=== PATIENT | female | born 1970 | race Caucasian/White ===

== ENCOUNTER 2017-04-18 13:28 | Inpatient (IN) | payer OTHER ==
[2017-04-18] MEDS ORDERED: SODIUM CHLORIDE 0.9% 1,000 ML IV STA (13:58)
[2017-04-18] MEDS ORDERED: methylPREDNISolone SOD SUCCI 125 MG/2 ML VIAL IV STA (13:58)
[2017-04-18] MEDS ORDERED: ALBUTEROL NEBULIZED 2.5 MG/3 ML INHALATION STA (13:58)
[2017-04-18] MEDS ORDERED: LEVOFLOXACIN 750MG-D5W PMX 750 MG in DEXTROSE/WATER 1 150ML.BAG IVPB STA (13:58)
[2017-04-18] MEDS ORDERED: IPRATROPIUM 0.5 MG/2.5 ML NEBU INHALATION STA (13:58)
[2017-04-18] MEDS ORDERED: SODIUM CHLORIDE 0.9% 500 ML IV STA (13:58)
[2017-04-18 14:04] LABS: Basophils # (A) 0.1 k/uL (0-0.2); Basophils % (A) 1 %; CH 33.9; CHCM 33.5; Eosinophils # (A) 0.2 k/uL (0-0.7); Eosinophils % (A) 2 %; HCT 46.4 % (34.0-46.0); HDW 2.38; HGB 15.1 gm/dL (11.4-16.0); Luc # (Auto) 0.18; Luc % (Auto) 2; Lymphocytes # (A) 1.9 k/uL (1.0-4.8); Lymphocytes % (A) 18 %; MCH 33.1 pg (25.0-35.0); MCHC 32.6 g/dL (31.0-37.0); MCV 101.6 fL (80.0-100.0); Macrocytosis Slight; Mean Platelet Volume 10.3; Monocytes # (A) 0.8 k/uL (0-1.0); Monocytes % (A) 7 %; Neutrophils # (A) 7.3 k/uL (1.3-7.7); Neutrophils % (A) 70 %; RBC 4.57 m/uL (3.80-5.40); RDW 14.8 % (11.5-15.5); WBC 10.4 k/uL (3.8-10.6); WBC (Perox) 10.26
[2017-04-18 14:17] LABS: Partial Thromboplastin Time 23.4 sec (22.0-30.0); Prothrombin Time 10.2 sec (9.0-12.0)
--- NOTE | 2017-04-18 14:27 | ED ---
SOB HPI - General Chief Complaint: Shortness of Breath Stated Complaint: MANI Time Seen by Provider: 04/18/17 13:53 Source: family, EMS Mode of arrival: EMS Limitations: no limitations - History of Present Illness Initial Comments: 46 years old female transferred from the local urgent care X for your shortness of breath, didn't notice her to go 2 saturation was 88 after the neb treatments. She presents with a shortness of breath no chest pain as such she does have chest pain when she takes a deep breath. She does have a history of smoking for 20 years denies any history of asthma no history of coronary artery disease. Denies any alcohol use family history is unremarkable as well as coronary artery disease is concerned she denies any headaches, depression AbdominalpainnofrequencyurgencydysurianosinussymptomsofTIAorCVA, and platelet about pain under the left breast, she calls it a pain from her stomach - Related Data Home Medications Medication Instructions Recorded Confirmed Ascorbic Acid [Vitamin C] 500 mg PO DAILY 04/18/17 04/18/17 Cyanocobalamin (Vitamin B-12) 1,000 mcg PO DAILY 04/18/17 04/18/17 [Vitamin B-12] Melatonin 3 mg PO HS 04/18/17 04/18/17 Allergies Allergy/AdvReac Type Severity Reaction Status Date / Time No Known Allergies Allergy Verified 04/18/17 14:10 Review of Systems ROS Statement: Those systems with pertinent positive or pertinent negative responses have been documented in the HPI. ROS Other: All systems not noted in ROS Statement are negative. Past Medical History Past Medical History: No Reported History History of Any Multi-Drug Resistant Organisms: None Reported Past Surgical History: Section Additional Past Surgical History / Comment(s): let arm cyst removal Past Psychological History: Anxiety Smoking Status: Current every day smoker Past Alcohol Use History: None Reported Past Drug Use History: None Reported General Exam - General Exam Comments Initial Comments: General: The patient is awake and alert, in no distress, and does not appear acutely ill. GCS is 15 Skin: Skin is warm and dry and no rashes or lesions are noted. Eye: Pupils are equal, round and reactive to light, extra-ocular movements are intact; there is normal conjunctiva bilaterally. Ears, nose, mouth and throat: There are moist mucous membranes and no oral lesions. Neck: The neck is supple, there is no tenderness no signs of meningitis Cardiovascular: There is a regular rate and rhythm. No murmur, rub or gallop is appreciated. Respiratory: To auscultation bilateral, poor air exchange, she is even barely wheezing Gastrointestinal: Soft, non-distended, non-tender abdomen without masses or organomegaly noted. There is no rebound or guarding present. Bowel sounds are unremarkable. Back: There is no tenderness to palpation in the midline. There is no obvious deformity. Musculoskeletal: Normal ROM, no tenderness, There is no pedal edema. There is no calf tenderness or swelling. No cords were appreciated. Neurological: CN II-XII intact, Cranial nerves III through XII are intact. There are no obvious motor or sensory deficits. Coordination appears grossly intact. Speech is normal. Psychiatric: Cooperative, appropriate mood & affect, normal judgment. Limitations: no limitations Course Vital Signs 04/18/17 04/18/17 04/18/17 13:30 13:53 14:15 Temperature 101.3 F H 101.4 F H Pulse Rate 114 H 106 H 114 H Respiratory 32 H 32 H Rate Blood Pressure 138/79 118/81 O2 Sat by Pulse 89 L 92 L Oximetry 04/18/17 04/18/17 04/18/17 14:23 14:33 14:46 Temperature 101.3 F H Pulse Rate 114 H 105 H 115 H Respiratory 28 H Rate Blood Pressure 149/80 O2 Sat by Pulse 97 Oximetry 04/18/17 04/18/17 14:51 15:55 Temperature 98.6 F Pulse Rate 130 H 116 H Respiratory 28 H 24 Rate Blood Pressure 134/70 132/67 O2 Sat by Pulse 92 L 93 L Oximetry Medical Decision Making - Lab Data Result diagrams: 04/18/17 13:51 04/18/17 13:51 Lab Results 04/18/17 04/18/17 04/18/17 Range/Units 13:51 13:51 13:51 WBC 10.4 (3.8-10.6) k/uL RBC 4.57 (3.80-5.40) m/uL Hgb 15.1 (11.4-16.0) gm/dL Hct 46.4 H (34.0-46.0) % MCV 101.6 H (80.0-100.0) fL MCH 33.1 (25.0-35.0) pg MCHC 32.6 (31.0-37.0) g/dL RDW 14.8 (11.5-15.5) % Plt Count 120 L (150-450) k/uL Neutrophils % 70 % Lymphocytes % 18 % Monocytes % 7 % Eosinophils % 2 % Basophils % 1 % Neutrophils # 7.3 (1.3-7.7) k/uL Lymphocytes # 1.9 (1.0-4.8) k/uL Monocytes # 0.8 (0-1.0) k/uL Eosinophils # 0.2 (0-0.7) k/uL Basophils # 0.1 (0-0.2) k/uL Macrocytosis Slight PT (9.0-12.0) sec INR (<1.2) APTT (22.0-30.0) sec D-Dimer (<0.60) mg/L FEU Sodium 141 (137-145) mmol/L Potassium 4.2 (3.5-5.1) mmol/L Chloride 109 H (98-107) mmol/L Carbon Dioxide 24 (22-30) mmol/L Anion Gap 8 mmol/L BUN 12 (7-17) mg/dL Creatinine 0.63 (0.52-1.04) mg/dL Est GFR (MDRD) Af Amer >60 (>60 ml/min/1.73 sqM) Est GFR (MDRD) Non-Af >60 (>60 ml/min/1.73 sqM) Glucose 99 (74-99) mg/dL Plasma Lactic Acid Heraclio 1.2 (0.7-2.0) mmol/L Calcium 8.6 (8.4-10.2) mg/dL Total Bilirubin 0.4 (0.2-1.3) mg/dL AST 26 (14-36) U/L ALT 27 (9-52) U/L Alkaline Phosphatase 65 (38-126) U/L Troponin I (0.000-0.034) ng/mL Total Protein 6.4 (6.3-8.2) g/dL Albumin 3.5 (3.5-5.0) g/dL Urine Color Urine Appearance (Clear) Urine pH (5.0-8.0) Ur Specific [place] (1.001-1.035) Urine Protein (Negative) Urine Glucose (UA) (Negative) Urine Ketones (Negative) Urine Blood (Negative) Urine Nitrite (Negative) Urine Bilirubin (Negative) Urine Urobilinogen (<2.0) mg/dL Ur Leukocyte Esterase (Negative) Urine RBC (0-5) /hpf Urine WBC (0-5) /hpf Ur Squamous Epith Cells (0-4) /hpf Urine Bacteria (None) /hpf Urine Mucus (None) /hpf 04/18/17 04/18/17 04/18/17 Range/Units 13:51 13:51 14:15 WBC (3.8-10.6) k/uL RBC (3.80-5.40) m/uL Hgb (11.4-16.0) gm/dL Hct (34.0-46.0) % MCV (80.0-100.0) fL MCH (25.0-35.0) pg MCHC (31.0-37.0) g/dL RDW (11.5-15.5) % Plt Count (150-450) k/uL Neutrophils % % Lymphocytes % % Monocytes % % Eosinophils % % Basophils % % Neutrophils # (1.3-7.7) k/uL Lymphocytes # (1.0-4.8) k/uL Monocytes # (0-1.0) k/uL Eosinophils # (0-0.7) k/uL Basophils # (0-0.2) k/uL Macrocytosis PT 10.2 (9.0-12.0) sec INR 1.0 (<1.2) APTT 23.4 (22.0-30.0) sec D-Dimer 0.36 (<0.60) mg/L FEU Sodium (137-145) mmol/L Potassium (3.5-5.1) mmol/L Chloride (98-107) mmol/L Carbon Dioxide (22-30) mmol/L Anion Gap mmol/L BUN (7-17) mg/dL Creatinine (0.52-1.04) mg/dL Est GFR (MDRD) Af Amer (>60 ml/min/1.73 sqM) Est GFR (MDRD) Non-Af (>60 ml/min/1.73 sqM) Glucose (74-99) mg/dL Plasma Lactic Acid Heraclio (0.7-2.0) mmol/L Calcium (8.4-10.2) mg/dL Total Bilirubin (0.2-1.3) mg/dL AST (14-36) U/L ALT (9-52) U/L Alkaline Phosphatase (38-126) U/L Troponin I <0.012 (0.000-0.034) ng/mL Total Protein (6.3-8.2) g/dL Albumin (3.5-5.0) g/dL Urine Color Yellow Urine Appearance Clear (Clear) Urine pH 6.5 (5.0-8.0) Ur Specific [place] 1.023 (1.001-1.035) Urine Protein Trace H (Negative) Urine Glucose (UA) Negative (Negative) Urine Ketones Negative (Negative) Urine Blood Moderate H (Negative) Urine Nitrite Negative (Negative) Urine Bilirubin Negative (Negative) Urine Urobilinogen <2.0 (<2.0) mg/dL Ur Leukocyte Esterase Negative (Negative) Urine RBC 25 H (0-5) /hpf Urine WBC 1 (0-5) /hpf Ur Squamous Epith Cells 5 H (0-4) /hpf Urine Bacteria Rare H (None) /hpf Urine Mucus Rare H (None) /hpf Disposition Clinical Impression: Dyspnea, Hypoxia, Pleuritic chest pain, COPD exacerbation Disposition: ADMITTED IP TO THIS [facility] Condition: Good Referrals: Bernardo Cloud DO [Primary Care Provider] - 1-2 days
[2017-04-18 14:28] LABS: Anion Gap 8 mmol/L; Blood Urea Nitrogen 12 mg/dL (7-17); Calcium 8.6 mg/dL (8.4-10.2); Carbon Dioxide 24 mmol/L (22-30); Chloride 109 mmol/L (98-107); Glucose 99 mg/dL (74-99); Non-African American GFR(MDRD) >60 (>60 ml/min/1.73 sqM); Potassium 4.2 mmol/L (3.5-5.1); Sodium 141 mmol/L (137-145); Total Bilirubin 0.4 mg/dL (0.2-1.3); Total Protein 6.4 g/dL (6.3-8.2)
[2017-04-18 14:29] LABS: ALT 27 U/L (9-52); AST 26 U/L (14-36); Alkaline Phosphatase 65 U/L (38-126)
[2017-04-18 14:35] LABS: Appearance,Urine Clear (Clear); Bacteria,Urine Rare /hpf; Bilirubin,Urine Negative (Negative); Glucose,Urine (UA) Negative (Negative); Ketones,Urine Negative (Negative); Leukocyte Esterase,Urine Negative (Negative); Mucus,Urine Rare /hpf; Nitrite,Urine Negative (Negative); PH, Urine 6.5 (5.0-8.0); Particle Count 3566; Protein,Urine Trace (Negative); RBC,Urine 25 /hpf (0-5); Specific Gravity,Urine 1.023 (1.001-1.035); Squamous Epithelial Cell,Urine 5 /hpf (0-4); UA Billing (MACRO vs. MICRO) MICRO; Urobilinogen,Urine <2.0 mg/dL (<2.0); WBC,Urine 1 /hpf (0-5)
--- NOTE | 2017-04-18 15:07 | XR ---
EXAMINATION TYPE: XR chest 2V DATE OF EXAM: 04/18/2017 COMPARISON: NONE HISTORY: Shortness of breath for 3 days TECHNIQUE: Frontal and lateral views of the chest are obtained. FINDINGS: There is no focal air space opacity, pleural effusion, or pneumothorax seen. Peribronchia l cuffing is seen on the lateral image centrally, which may relate to reactive small airway disease o r bronchitis. The cardiac silhouette size is within normal limits. The osseous structures are intac t. Mild degenerative changes of the thoracic spine are noted. IMPRESSION: 1. Peribronchial cuffing centrally which may relate to bronchitis or reactive small airway disease. 2. No focal consolidation to suggest pneumonia.
[2017-04-18] MEDS ORDERED: NITROGLYCERIN SL TABS 0.4 MG TAB SUBLINGUAL PRN (16:22)
[2017-04-18] MEDS ORDERED: MORPHINE SULFATE 2 MG/ML SYRINGE IVP PRN (16:22)
[2017-04-18 18:03] VITALS: BMI 31.1
[2017-04-18] MEDS: SODIUM CHLORIDE 0.9% 1,000 ML IV SCH (18:06)
[2017-04-18] MEDS: methylPREDNISolone SOD SUCCI 125 MG/2 ML VIAL IV SCH ×2 (18:14→22:59)
[2017-04-18 19:57] LABS: Creatine Kinase 87 U/L (30-135)
[2017-04-18 20:11] LABS: Creatine Kinase MB 1.9 ng/mL (0.0-2.4); Troponin I <0.012 ng/mL (0.000-0.034)
[2017-04-18 21:04] LABS: Glucose,Whole Blood 228 mg/dL (75-99)
[2017-04-18] MEDS: INSULIN LISPRO (humaLOG) 300 UNIT/3 ML VIAL SQ SCH (21:16)
[2017-04-18] MEDS: IPRATROPIUM-ALBUTEROL 3 ML NEB INHALATION PRN (21:30)
[2017-04-18] MEDS: BUDESONIDE 0.5 MG/2 ML NEBU INHALATION SCH (21:30)
[2017-04-18] MEDS: MELATONIN 3 MG TABLET PO SCH (22:33)
[2017-04-19] MEDS: SODIUM CHLORIDE 0.9% 1,000 ML IV SCH ×2 (02:08→11:47)
[2017-04-19 02:22] LABS: Cholesterol 136 mg/dL (<200); HDL Cholesterol 59 mg/dL (40-60)
[2017-04-19 02:22] LABS: Creatine Kinase 108 U/L (30-135)
[2017-04-19 02:33] LABS: Troponin I <0.012 ng/mL (0.000-0.034)
[2017-04-19 02:43] LABS: Creatine Kinase MB 2.6 ng/mL (0.0-2.4)
[2017-04-19] MEDS: methylPREDNISolone SOD SUCCI 125 MG/2 ML VIAL IV SCH ×2 (04:57→11:38)
[2017-04-19 05:54] LABS: Glucose,Whole Blood 159 mg/dL (75-99)
[2017-04-19] MEDS: INSULIN LISPRO (humaLOG) 300 UNIT/3 ML VIAL SQ SCH ×4 (06:13→22:31)
[2017-04-19] MEDS: ASCORBIC ACID 500 MG TAB PO SCH (07:27)
[2017-04-19] MEDS: ASPIRIN 325 MG TAB PO SCH (07:27)
--- NOTE | 2017-04-19 07:58 | P.HPIM ---
History of Present Illness H&P Date: 04/19/17 Chief Complaint: shortness of breath and chest pain 46 years old female with past medical history of depression, patient of Dr. Minaya presents with worsening shortness of breath and nonproductive cough for past 2 days. Patient was transferred from a local urgent care for shortness of breath with SpO2 of 88% after nebulization treatments. Shortness of breath is associated with mild nonproductive cough.. Patient complains of left-sided chest pain, nonradiating, associated with meals, heartburn and worsens with taking a deep breath for past few months. Patient denies any fever , chills, exposure to a sick contact or recent travel. 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 Patient's x-ray suggestive of peribronchial coughing relating to bronchitis but no consolidation to suggest pneumonia. In the ED, troponin 2 were negative with slight elevation of CK-MB to 2.6. Panel was done suggest a LDL of 65. Patient has a glucose of 228 on admission, rest of the BMP and CBC was unremarkable. Patient was admitted for management of chest pain and acute bronchitis with metallic prednisone 60 mg every 6 hours along with nebulizing treatments. Cardiology was consulted for atypical chest pain. Echo was ordered to rule out any wall abnormalities. Review of Systems Constitutional: Denies chills, Denies fever, Denies lethargy, Denies malaise, Denies poor appetite, Denies weakness, Denies weight loss Eyes: denies decreased vision, denies diplopia, denies discharge, denies pain Ears: deny: decreased hearing Ears, nose, mouth and throat: Denies dental pain, Denies headache, Denies nasal discharge, Denies nose pain Cardiovascular: Denies chest pain, Denies decreased exercise tolerance, Denies edema, Denies high blood pressure, Denies irregular heart beat, Denies palpitations, Denies paroxysmal nocturnal dyspnea, Denies rapid heart beat, endorses shortness of breath Respiratory: Denies congestion, endorses cough, Denies cough with sputum, Denies dyspnea, Denies home oxygen, endorses wheezing Gastrointestinal: Denies abdominal pain, Denies change in bowel habits, Denies coffee ground emesis, Denies early satiety, Denies excessive gas, Denies heartburn, Denies hematemesis, Denies hematochezia, Denies loss of appetite, Denies nausea, Denies vomiting Genitourinary: Denies dysuria, Denies flank pain, Denies kidney stones, Denies menorrhagia, Denies urgency, Denies urinary frequency Musculoskeletal: Denies gait dysfunction, Denies limitation of motion, Denies morning stiffness, Denies muscle cramps Integumentary: Denies rash, Denies wounds, Denies brittle nails, Denies change in hair/nails, Denies darkening of skin Neurological: Denies balance difficulties, Denies change in speech, Denies double vision, Denies gait dysfunction, Denies loss of vision, Denies motor disturbance, Denies numbness, Denies paralysis, Denies paresthesias, Denies seizures Psychiatric: Denies anxiety, Denies depression Endocrine: Denies excessive sweating, Denies excessive thirst, Denies high blood sugars, Denies palpitations Hematologic/Lymphatic: Denies easy bruising, Denies lymphadenopathy Past Medical History Past Medical History: No Reported History Additional Past Medical History / Comment(s): depression History of Any Multi-Drug Resistant Organisms: None Reported Past Surgical History: Section Additional Past Surgical History / Comment(s): let arm cyst removal Past Psychological History: Anxiety Smoking Status: Current every day smoker Past Alcohol Use History: None Reported Past Drug Use History: None Reported Medications and Allergies Home Medications Medication Instructions Recorded Confirmed Type Ascorbic Acid [Vitamin C] 500 mg PO DAILY 04/18/17 04/18/17 History Cyanocobalamin (Vitamin B-12) 1,000 mcg PO DAILY 04/18/17 04/18/17 History [Vitamin B-12] Melatonin 3 mg PO HS 04/18/17 04/18/17 History DULoxetine HCL [Cymbalta] 60 mg PO DAILY 04/19/17 04/19/17 History Allergies Allergy/AdvReac Type Severity Reaction Status Date / Time No Known Allergies Allergy Verified 04/18/17 14:10 Physical Exam Vitals: Vital Signs Temp Pulse Pulse Resp BP BP Pulse Ox 04/19/17 07:55 20 04/19/17 04:00 98 F 84 20 122/86 93 L 04/18/17 23:46 97 F L 113 H 20 118/63 94 L 04/18/17 21:43 108 H 04/18/17 21:31 104 H 04/18/17 20:00 98 F 105 H 20 129/75 92 L 04/18/17 17:55 98.2 F 106 H 22 125/70 94 L 04/18/17 17:24 98.6 F 111 H 24 134/72 94 L 04/18/17 15:55 116 H 24 132/67 93 L 04/18/17 14:51 98.6 F 130 H 28 H 134/70 92 L 04/18/17 14:46 115 H 04/18/17 14:33 105 H 04/18/17 14:23 101.3 F H 114 H 28 H 149/80 97 04/18/17 14:15 114 H 04/18/17 13:53 101.4 F H 106 H 32 H 118/81 92 L 04/18/17 13:30 101.3 F H 114 H 32 H 138/79 89 L Intake and Output 04/18/17 04/19/17 04/19/17 22:59 06:59 14:59 Intake Total 800 800 Balance 800 800 Intake: IV 800 800 Sodium Chloride 0.9% 1, 800 800 000 ml @ 100 mls/hr IV . Q10H [facility], [facility] Rx#:[id number] Other: Weight 72.5 kg 72.7 kg - Constitutional General appearance: cooperative, no acute distress, obese, wearing oxygen - EENT Eyes: anicteric sclerae, PERRLA, normal appearance ENT: hearing grossly normal - Neck Neck: no lymphadenopathy, normal ROM, no other, no rigidity, no stridor, no thyromegaly - Respiratory Respiratory: Diffuse wheezing present, no rales no rhonchi, diminished air entry at the bases - Cardiovascular Rhythm: regular Heart sounds: normal: S1, S2 Abnormal Heart Sounds: no systolic murmur, no diastolic murmur, no rub, no S3 Gallop, no S4 Gallop, no click, no other - Gastrointestinal General gastrointestinal: normal bowel sounds, soft - Integumentary Integumentary: no rash - Neurologic Neurologic: CNII-XII intact - Musculoskeletal Musculoskeletal: gait normal, strength equal bilaterally - Psychiatric Psychiatric: A&O x's 3, appropriate affect Results CBC & Chem 7: 04/18/17 13:51 04/18/17 13:51 Labs: Abnormal Lab Results - Last 24 Hours (Table) 04/18/17 04/18/17 04/18/17 Range/Units 13:51 13:51 14:15 Hct 46.4 H (34.0-46.0) % MCV 101.6 H (80.0-100.0) fL Plt Count 120 L (150-450) k/uL Chloride 109 H (98-107) mmol/L POC Glucose (mg/dL) (75-99) mg/dL CK-MB (CK-2) (0.0-2.4) ng/mL Urine Protein Trace H (Negative) Urine Blood Moderate H (Negative) Urine RBC 25 H (0-5) /hpf Ur Squamous Epith Cells 5 H (0-4) /hpf Urine Bacteria Rare H (None) /hpf Urine Mucus Rare H (None) /hpf 04/18/17 04/19/17 04/19/17 Range/Units 21:00 01:43 05:53 Hct (34.0-46.0) % MCV (80.0-100.0) fL Plt Count (150-450) k/uL Chloride (98-107) mmol/L POC Glucose (mg/dL) 228 H 159 H (75-99) mg/dL CK-MB (CK-2) 2.6 H* (0.0-2.4) ng/mL Urine Protein (Negative) Urine Blood (Negative) Urine RBC (0-5) /hpf Ur Squamous Epith Cells (0-4) /hpf Urine Bacteria (None) /hpf Urine Mucus (None) /hpf Microbiology - Last 24 Hours (Table) 04/18/17 14:15 Urine Culture - Preliminary Urine,Voided Thrombosis Risk Factor Assmnt - DVT/VTE Prophylaxis DVT/VTE Prophylaxis: Pharmacologic Prophylaxis ordered Assessment and Plan Plan: 46 years old female with history of depression presently admitted for acute tracheobronchitis #1 acute bronchitis with hypoxic respiratory failure - Continue oxygen as needed to keep SpO2 greater than 90%, continue Solu-Medrol 60 Q8, we will transition to prednisone tomorrow - Patient's breathing has improved since yesterday, patient advised to stop smoking and to avoid passive smoking - Continue DuoNeb every 4 hours with Pulmicort twice a day - Discontinue fluids, incentive spirometry 10 times an hour - Continue Levaquin 500 mg daily #2 depression - Continue home dose of Cymbalta #3 tobacco abuse - Patient counselled on stopping smoking, patient understands the risk associated with smoking and is ready to quit. - Nicotine patch 14 mg daily #4 DVT prophylaxis - Hep heparin 5000 subcutaneously every 12 #5 GI prophylaxis- Pepcid 20 mg by mouth daily #6 CODE STATUS- full code #7 disposition- likely discharge home tomorrow
[2017-04-19] MEDS: BUDESONIDE 0.5 MG/2 ML NEBU INHALATION SCH ×2 (08:04→21:07)
[2017-04-19] MEDS: IPRATROPIUM-ALBUTEROL 3 ML NEB INHALATION PRN ×3 (08:04→21:07)
--- NOTE | 2017-04-19 11:35 | ECHOF ---
Referral Reason:chest pain and SOB MEASUREMENTS -------- HEIGHT: 152.4 cm WEIGHT: 72.6 kg BP: 126/75 IVSd: 1.3 cm (0.6 - 1.1) LVIDd: 3.8 cm (3.9 - 5.3) LVPWd: 0.9 cm (0.6 - 1.1) IVSs: 1.4 cm LVIDs: 3.0 cm LVPWs: 0.8 cm LA Diam: 2.7 cm (2.7 - 3.8) Ao Diam: 2.6 cm (2.0 - 3.7) AV Cusp: 1.6 cm (1.5 - 2.6) LA Diam: 3.1 cm (2.7 - 3.8) MV EXCURSION: 13.536 mm (> 18.000) MV EF SLOPE: 83 mm/s (70 - 150) EPSS: 0.2 cm MV E Mikel: 0.68 m/s MV DecT: 195 ms MV A Mikel: 1.08 m/s MV E/A Ratio: 0.63 FINDINGS -------- Sinus rhythm. This was a techncally difficult study with suboptimal views, , Definity utilized for enhancement of images. The left ventricular size is normal. There is mild concentric left ventricular hypertrophy. Overall left ventricular systolic function is normal with, an EF between 55 - 60 %. The right ventricle is normal in size. The left atrial size is normal. The right atrial size is normal. 1.5MG OF DEFINITY UTLIZED: 2 OR MORE WALL SEGMENTS NOT VISUALIZED. The aortic valve is trileaflet, and appears structurally normal. No aortic stenosis or regurgitation. Mild mitral annular calcification present. Mild mitral regurgitation is present. Mild tricuspid regurgitation present. There is no evidence of pulmonary hypertension. The right ventricular systolic pressure, as measured by Doppler, is {RVSP}. There is no pulmonic regurgitation present. The aortic root size is normal. There is no pericardial effusion. CONCLUSIONS -------- 1. This was a techncally difficult study with suboptimal views, , Definity utilized for enhancement of images. 2. There is no evidence of pulmonary hypertension. 3. The right ventricular systolic pressure, as measured by Doppler, is {RVSP}. 4. There is no pulmonic regurgitation present. 5. The aortic root size is normal. 6. There is no pericardial effusion. 7. The left ventricular size is normal. 8. There is mild concentric left ventricular hypertrophy. 9. Overall left ventricular systolic function is normal with, an EF between 55 - 60 %. 10. 1.5MG OF DEFINITY UTLIZED: 2 OR MORE WALL SEGMENTS NOT VISUALIZED. 11. The aortic valve is trileaflet, and appears structurally normal. No aortic stenosis or regurgitation. 12. Mild mitral annular calcification present. 13. Mild mitral regurgitation is present. 14. Mild tricuspid regurgitation present. [employer] O[employer]ATOR: Janneth Abraham RDCS
[2017-04-19] MEDS: CYANOCOBALAMIN 500 MCG TAB PO SCH (11:38)
[2017-04-19] MEDS: LEVOFLOXACIN 500 MG TAB PO SCH (11:38)
[2017-04-19 11:39] LABS: Glucose,Whole Blood 185 mg/dL (75-99)
--- NOTE | 2017-04-19 12:44 | CONS ---
CONSULTATION Mrs. Valle is a 46-year-old female with no prior documented history of coronary artery disease, history of chronic tobacco use presented with symptoms of progressive dyspnea and cough. She has been having the dyspnea and cough for a few weeks, worse upon admission. She cannot recall the color of her sputum. She denies any chest discomfort. She denies any prior history of cardiac disease. She has some palpitation and dizziness. No clear PND, orthopnea or peripheral edema. She is a chronic tobacco user, and she has a baseline dyspnea on exertion. Her coronary risk factors are positive for chronic tobacco use. No history of hypertension, hyperlipidemia, or diabetes. MEDICATIONS: Her medications include melatonin, vitamin B12, and vitamin C. REVIEW OF SYSTEMS: RESPIRATORY SYSTEM: She has the cough, the dyspnea on exertion, the chronic wheezing. GI SYSTEM: No recent GI bleed. She has a remote history of peptic ulcer disease. SYSTEM: No dysuria or hematuria. NERVOUS SYSTEM: No history of stroke or seizure. PHYSICAL EXAMINATION: A 46-year-old female, alert, oriented, mild dyspnea. Blood pressure 126/70 with the heart rate in the low 100s to 90s. HEAD: Normocephalic. EYES: Sclerae anicteric. NECK: No bruit. LUNGS: With diffuse wheezes bilaterally in inspiratory and expiratory. HEART: Regular rate and rhythm. S1, S2. No S3. No rub or gallop. ABDOMEN: Soft, nontender. Positive bowel sounds. No organomegaly. EXTREMITIES: No edema. Intact distal pulses. LAB DATA: Lab data revealed a hemoglobin 15.1, hematocrit 46.4, white blood cell of 10.4. BUN and creatinine 12 and 0.63. less than 0.012. Her cholesterol 136, LDL of 63. Her chest x-ray shows peribronchial cuffing could be related to bronchitis. EKG revealed a sinus mechanism with a normal axis and intervals; no acute ST-segment changes. IMPRESSION: 1. Progressive dyspnea with exacerbation of chronic obstructive pulmonary disease and tracheobronchitis. 2. Chronic tobacco use. RECOMMENDATION: From the cardiac standpoint, I see no evidence to suggest cardiac abnormalities. I have encouraged her to stop smoking. We will review the results of her echocardiogram. Thank you for this consult. We will follow with you. MMODL / IJN: [id number] /
[2017-04-19] MEDS ORDERED: methylPREDNISolone SOD SUCCI 125 MG/2 ML VIAL IV SCH (16:00)
[2017-04-19 18:03] LABS: Glucose,Whole Blood 150 mg/dL (75-99)
[2017-04-19 20:49] LABS: Glucose,Whole Blood 136 mg/dL (75-99)
[2017-04-19] MEDS: MELATONIN 3 MG TABLET PO SCH (22:31)
[2017-04-19] MEDS: HEPARIN SODIUM,PORCINE 5,000 UNIT/ML 1 ML VIAL SQ SCH (22:31)
[2017-04-20 07:07] LABS: Glucose,Whole Blood 113 mg/dL (75-99)
[2017-04-20] MEDS: BUDESONIDE 0.5 MG/2 ML NEBU INHALATION SCH ×2 (07:27→19:13)
[2017-04-20] MEDS: IPRATROPIUM-ALBUTEROL 3 ML NEB INHALATION PRN ×4 (07:27→19:13)
[2017-04-20] MEDS: INSULIN LISPRO (humaLOG) 300 UNIT/3 ML VIAL SQ SCH ×4 (08:13→20:05)
[2017-04-20] MEDS: ASCORBIC ACID 500 MG TAB PO SCH (08:15)
[2017-04-20] MEDS: ASPIRIN 325 MG TAB PO SCH (08:15)
[2017-04-20] MEDS: FAMOTIDINE 20 MG TAB PO SCH (08:16)
[2017-04-20] MEDS: HEPARIN SODIUM,PORCINE 5,000 UNIT/ML 1 ML VIAL SQ SCH ×2 (08:16→20:04)
[2017-04-20] MEDS ORDERED: predniSONE 20 MG TAB PO SCH (09:00)
[2017-04-20] MEDS: guaiFENesin 600 MG TABLET.ER PO SCH ×2 (11:03→20:04)
[2017-04-20 11:38] LABS: Glucose,Whole Blood 127 mg/dL (75-99)
[2017-04-20] MEDS: LEVOFLOXACIN 500 MG TAB PO SCH (12:04)
[2017-04-20] MEDS: CYANOCOBALAMIN 500 MCG TAB PO SCH (12:04)
--- NOTE | 2017-04-20 13:47 | P.PN ---
Subjective 46 years old female with past medical history of depression, patient of Dr. Minaya presents with worsening shortness of breath and nonproductive cough for past 2 days. Patient was transferred from a local urgent care for shortness of breath with SpO2 of 88% after nebulization treatments. Shortness of breath is associated with mild nonproductive cough.. Patient complains of left-sided chest pain, nonradiating, associated with meals, heartburn and worsens with taking a deep breath for past few months. Patient denies any fever , chills, exposure to a sick contact or recent travel. 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 Patient's x-ray suggestive of peribronchial coughing relating to bronchitis but no consolidation to suggest pneumonia. In the ED, troponin 2 were negative with slight elevation of CK-MB to 2.6. Panel was done suggest a LDL of 65. Patient has a glucose of 228 on admission, rest of the BMP and CBC was unremarkable. Patient was admitted for management of chest pain and acute bronchitis with metallic prednisone 60 mg every 6 hours along with nebulizing treatments. Cardiology was consulted for atypical chest pain. Echo was ordered to rule out any wall abnormalities. 04/20: Patient continues to have a lot of cough for which Mucinex has been added. She is continued on DuoNeb treatments and Levaquin. She is also on Pulmicort. Prednisone will be decreased to 50 mg for tomorrow with anticipation of discharge home tomorrow. Objective - Vital Signs Vital signs: Vital Signs Temp 97.7 F 04/20/17 07:00 Pulse 88 04/20/17 11:18 Resp 18 04/20/17 08:00 BP 125/67 04/20/17 07:00 Pulse Ox 90 L 04/20/17 11:51 Intake & Output 04/19/17 04/20/17 04/20/17 18:59 06:59 18:59 Intake Total 720 Balance 720 Weight 72.7 kg Intake: Oral 720 Other: # Voids 2 3 - Exam General appearance: cooperative, no acute distress, obese, wearing oxygen - EENT Eyes: anicteric sclerae, PERRLA, normal appearance ENT: hearing grossly normal - Neck Neck: no lymphadenopathy, normal ROM, no other, no rigidity, no stridor, no thyromegaly - Respiratory Respiratory: Diffuse wheezing present, no rales no rhonchi, diminished air entry at the bases - Cardiovascular Rhythm: regular Heart sounds: normal: S1, S2 Abnormal Heart Sounds: no systolic murmur, no diastolic murmur, no rub, no S3 Gallop, no S4 Gallop, no click, no other - Gastrointestinal General gastrointestinal: normal bowel sounds, soft - Integumentary Integumentary: no rash - Neurologic Neurologic: CNII-XII intact - Musculoskeletal Musculoskeletal: gait normal, strength equal bilaterally - Psychiatric Psychiatric: A&O x's 3, appropriate affect - Labs CBC & Chem 7: 04/18/17 13:51 04/18/17 13:51 Labs: Abnormal Lab Results - Last 24 Hours (Table) 04/19/17 04/19/17 04/20/17 Range/Units 17:13 20:42 06:55 POC Glucose (mg/dL) 150 H 136 H 113 H (75-99) mg/dL 04/20/17 Range/Units 11:23 POC Glucose (mg/dL) 127 H (75-99) mg/dL Microbiology - Last 24 Hours (Table) 04/18/17 14:15 Urine Culture - Final Urine,Voided 04/18/17 13:51 Blood Culture - Preliminary Blood No Growth after 24 hours Assessment and Plan Plan: #1 acute bronchitis with hypoxic respiratory failure - Continue oxygen as needed to keep SpO2 greater than 90%, continue Solu-Medrol 60 Q8, we will transition to prednisone tomorrow - Patient's breathing has improved since yesterday, patient advised to stop smoking and to avoid passive smoking - Continue DuoNeb every 4 hours with Pulmicort twice a day - Discontinue fluids, incentive spirometry 10 times an hour - Continue Levaquin 500 mg daily, Mucinex #2 depression - Continue home dose of Cymbalta #3 tobacco abuse - Patient counselled on stopping smoking, patient understands the risk associated with smoking and is ready to quit. - Nicotine patch 14 mg daily #4 DVT prophylaxis - Hep heparin 5000 subcutaneously every 12 #5 GI prophylaxis- Pepcid 20 mg by mouth daily #6 CODE STATUS- full code #7 disposition- likely discharge home tomorrow Impression and plan of care have been directed as dictated by the signing physician. Oriana Kaur nurse practitioner acting as scribe for signing physician.
[2017-04-20 16:30] LABS: Glucose,Whole Blood 157 mg/dL (75-99)
[2017-04-20] MEDS: MELATONIN 3 MG TABLET PO SCH (20:04)
[2017-04-20 20:16] LABS: Glucose,Whole Blood 147 mg/dL (75-99)
[2017-04-21] MEDS: INSULIN LISPRO (humaLOG) 300 UNIT/3 ML VIAL SQ SCH (07:01)
[2017-04-21] MEDS: BUDESONIDE 0.5 MG/2 ML NEBU INHALATION SCH (07:12)
[2017-04-21] MEDS: IPRATROPIUM-ALBUTEROL 3 ML NEB INHALATION PRN (07:12)
[2017-04-21 07:35] VITALS: BP 138/82; PULSE 83; TEMP 98.3
[2017-04-21] MEDS: ASCORBIC ACID 500 MG TAB PO SCH (08:28)
[2017-04-21] MEDS: FAMOTIDINE 20 MG TAB PO SCH (08:29)
[2017-04-21] MEDS: ASPIRIN 325 MG TAB PO SCH (08:29)
[2017-04-21] MEDS: guaiFENesin 600 MG TABLET.ER PO SCH (08:29)
[2017-04-21] MEDS: HEPARIN SODIUM,PORCINE 5,000 UNIT/ML 1 ML VIAL SQ SCH (08:29)
[2017-04-21 08:54] VITALS: RESP 26
[2017-04-21] MEDS ORDERED: predniSONE 50 MG TAB PO SCH (09:00)
--- NOTE | 2017-04-21 12:10 | P.DS ---
Providers Date of admission: 04/18/17 16:22 Expected date of discharge: 04/21/17 Attending physician: Kristopher Escobar MD [facility] Course: 46 years old female with past medical history of depression, patient of Dr. Minaya presents with worsening shortness of breath and nonproductive cough for past 2 days. Patient was transferred from a local urgent care for shortness of breath with SpO2 of 88% after nebulization treatments. Shortness of breath is associated with mild nonproductive cough.. Patient complains of left-sided chest pain, nonradiating, associated with meals, heartburn and worsens with taking a deep breath for past few months. Patient denies any fever , chills, exposure to a sick contact or recent travel. 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 Patient's x-ray suggestive of peribronchial coughing relating to bronchitis but no consolidation to suggest pneumonia. In the ED, troponin 2 were negative with slight elevation of CK-MB to 2.6. Panel was done suggest a LDL of 65. Patient has a glucose of 228 on admission, rest of the BMP and CBC was unremarkable. Patient was admitted for management of chest pain and acute bronchitis with metallic prednisone 60 mg every 6 hours along with nebulizing treatments. Cardiology was consulted for atypical chest pain. Echo was ordered to rule out any wall abnormalities. 04/20: Patient continues to have a lot of cough for which Mucinex has been added. She is continued on DuoNeb treatments and Levaquin. She is also on Pulmicort. Prednisone will be decreased to 50 mg for tomorrow with anticipation of discharge home tomorrow. Discharge diagnoses: #1 acute bronchitis with hypoxic respiratory failure most likely secondary to asthma, new onset but COPD is not entirely ruled out. Patient will need follow- up with pulmonary physician to determine her underlying diagnosis. #2 depression, recurrent #3 tobacco abuse Discharge plan: Home Impression and plan of care have been directed as dictated by the signing physician. Oriana Kaur nurse practitioner acting as scribe for signing physician. Cc: Dr. Bernardo Cloud Patient Condition at Discharge: Good Plan - Discharge Summary New Discharge Prescriptions: New guaiFENesin [Mucinex] 600 mg PO Q12HR tab Levofloxacin [Levaquin] 500 mg PO DAILY@1200 #3 tab Albuterol Inhaler [Ventolin Hfa Inhaler] 2 puff INHALATION Q6HR PRN #1 inhaler PRN Reason: Wheezing predniSONE 10 mg PO DAILY #30 tab Continue Cyanocobalamin (Vitamin B-12) [Vitamin B-12] 1,000 mcg PO DAILY Ascorbic Acid [Vitamin C] 500 mg PO DAILY Melatonin 3 mg PO HS DULoxetine HCL [Cymbalta] 60 mg PO DAILY Discharge Medication List Ascorbic Acid [Vitamin C] 500 mg PO DAILY 04/18/17 [History] Cyanocobalamin (Vitamin B-12) [Vitamin B-12] 1,000 mcg PO DAILY 04/18/17 [ History] Melatonin 3 mg PO HS 04/18/17 [History] DULoxetine HCL [Cymbalta] 60 mg PO DAILY 04/19/17 [History] Albuterol Inhaler [Ventolin Hfa Inhaler] 2 puff INHALATION Q6HR PRN #1 inhaler 04/21/17 [Rx] Levofloxacin [Levaquin] 500 mg PO DAILY@1200 #3 tab 04/21/17 [Rx] guaiFENesin [Mucinex] 600 mg PO Q12HR tab 04/21/17 [Rx] predniSONE 10 mg PO DAILY #30 tab 04/21/17 [Rx] Follow up Appointment(s)/Referral(s): Bernardo Cloud DO [Primary Care Provider] - 1 Week (Office to call pt to schedule appointment.) Partha Velazco MD [STAFF PHYSICIAN] - 04/28/17 3:45 pm Patient Instructions/Handouts: COPD (Chronic Obstructive Pulmonary Disease) (DC ), Dyspnea (GEN), Hypoxia (GEN), How Your Lungs Work (DC), Energy Conservation Techniques (DC) Discharge Disposition: HOME SELF-CARE
== END 2017-04-21 10:50 | disposition home or self-care (01) | DRG 190 ==
LOC: EC 13:28 → 6SEL 16:22 → 5MS5E 04-19 14:23
PROVIDERS: ADMIT Internal Medicine; ATTEND Internal Medicine
DX: J44.0 Chronic obstructive pulmonary disease with (acute) lower respiratory infection (principal); J96.01 Acute respiratory failure with hypoxia; F17.200 Nicotine dependence, unspecified, uncomplicated; J44.1 Chronic obstructive pulmonary disease with (acute) exacerbation; F32.9 Major depressive disorder, single episode, unspecified; F41.9 Anxiety disorder, unspecified; J20.9 Acute bronchitis, unspecified; R07.89 Other chest pain
CPT/HCPCS: 36415; 71020; 80053; 80061; 81001; 82550; 82553; 83605; 84484; 85025; 85379; 85610; 85730; 87040; 87086; 93306; 94640; 94760; 96365; 99285

== ENCOUNTER 2017-12-06 17:10 | Emergency (ER) | payer OTHER ==
[2017-12-06 18:30] VITALS: BP 140/101; PULSE 78; RESP 18; TEMP 98.1
[2017-12-06] MEDS ORDERED: TOPICAL SKIN ADHESIVE 1 EACH AMP TOPICAL ONE (20:35)
--- NOTE | 2017-12-06 20:50 | ED ---
General Adult HPI - General Chief complaint: Wound/Laceration Stated complaint: Finger Lac Time Seen by Provider: 12/06/17 20:01 Source: patient, RN notes reviewed Mode of arrival: ambulatory Limitations: no limitations - History of Present Illness Initial comments: 47-year-old female presents to the emergency determine for a chief complaint of laceration about 3 hours ago. Patient was cutting chicken when she cut her finger. Patient denies any other injuries. Patient states her tetanus is up-to -date as of last year. Patient states she can move the finger without difficulty. Patient has no other complaints at this time including shortness of breath, chest pain, abdominal pain, nausea or vomiting, headache, or visual changes. - Related Data Home Medications Medication Instructions Recorded Confirmed Ascorbic Acid [Vitamin C] 500 mg PO DAILY 04/18/17 04/18/17 Cyanocobalamin (Vitamin B-12) 1,000 mcg PO DAILY 04/18/17 04/18/17 [Vitamin B-12] Melatonin 3 mg PO HS 04/18/17 04/18/17 DULoxetine HCL [Cymbalta] 60 mg PO DAILY 04/19/17 04/19/17 Previous Rx's Medication Instructions Recorded Albuterol Inhaler [Ventolin Hfa 2 puff INHALATION Q6HR PRN #1 04/21/17 Inhaler] inhaler Levofloxacin [Levaquin] 500 mg PO DAILY@1200 #3 tab 04/21/17 guaiFENesin [Mucinex] 600 mg PO Q12HR tab 04/21/17 predniSONE 10 mg PO DAILY #30 tab 04/21/17 Allergies Allergy/AdvReac Type Severity Reaction Status Date / Time No Known Allergies Allergy Verified 12/06/17 18:26 Review of Systems ROS Statement: Those systems with pertinent positive or pertinent negative responses have been documented in the HPI. ROS Other: All systems not noted in ROS Statement are negative. Past Medical History Past Medical History: No Reported History Additional Past Medical History / Comment(s): depression History of Any Multi-Drug Resistant Organisms: None Reported Past Surgical History: Section Additional Past Surgical History / Comment(s): let arm cyst removal Past Psychological History: Anxiety, Depression Smoking Status: Current every day smoker Past Alcohol Use History: None Reported Past Drug Use History: None Reported General Exam Limitations: no limitations General appearance: alert, in no apparent distress Respiratory exam: Present: normal lung sounds bilaterally. Absent: respiratory distress, wheezes, rales, rhonchi, stridor Cardiovascular Exam: Present: regular rate, normal rhythm, normal heart sounds. Absent: systolic murmur, diastolic murmur, rubs, gallop, clicks Extremities exam: Present: full ROM (Full range of motion of the second digit left hand. Full flexion and extension of the DIP, PIP, MCP joints.), tenderness (Tenderness to the distal phalanx around the laceration site.), normal capillary refill (Refill less than 2 seconds in left upper extremity including second digit and radial pulse 2+.), other (There is a 1 cm laceration on the volar aspect of the left second digit. Laceration does not appear deep. No deep structures injured.). Absent: joint swelling Course Vital Signs 12/06/17 18:26 Temperature 98.1 F Pulse Rate 78 Respiratory 18 Rate Blood Pressure 140/101 O2 Sat by Pulse 98 Oximetry Procedures - Procedures Initial comment: Wound was cleaned thoroughly with iodine in sterile water. It was inspected for any deep structure injuries. All deep structures intact. Wound was then glued with Dermabond. Medical Decision Making - Medical Decision Making 47-year-old female since to the emergency department for a chief complaint of laceration to the volar aspect of the distal phalanx upper left second digit. This occurred about 3 hour ago when patient was cutting with a knife. Patient' s tetanus is up-to-date. On exam patient has full range of motion of the second digit including the DIP, PIP and MCP joints. Capillary refill less than 2 seconds in distal phalanx of second digit. Patient was offered an x-ray which she refused because she has been here too long. It was explained that x- rays used to rule out any bone fractures or foreign bodies the patient still refused. Wound was then glued. Patient will return to the emergency Department if she has any worsening symptoms. Otherwise she will follow-up with primary care in 1-2 days. Disposition Clinical Impression: Laceration Disposition: HOME SELF-CARE Condition: Good Instructions: Skin Adhesive Care (ED) Additional Instructions: Motrin and Tylenol for pain. Monitor for any signs of infection or worsening symptoms and return if these occur. Otherwise follow-up with primary care in 1- 2 days. Is patient prescribed a controlled substance at d/c from ED?: No Referrals: Bernardo Cloud DO [Primary Care Provider] - 1-2 days Time of Disposition: 20:49
== END 2017-12-06 20:57 | disposition home or self-care (01) ==
LOC: EC 17:10
DX: S61.211A Laceration without foreign body of left index finger without damage to nail, initial encounter (principal); W26.0XXA Contact with knife, initial encounter; F32.9 Major depressive disorder, single episode, unspecified; F41.9 Anxiety disorder, unspecified; F17.200 Nicotine dependence, unspecified, uncomplicated; Z79.899 Other long term (current) drug therapy
CPT/HCPCS: 12001; 99282

== ENCOUNTER 2019-07-18 16:48 | Observation (INO) | payer OTHER ==
[2019-07-18] MEDS ORDERED: ASPIRIN 81 MG PO STA (17:10)
[2019-07-18] MEDS ORDERED: IPRATROPIUM-ALBUTEROL 3 ML NEB INHALATION STA (17:10)
[2019-07-18] MEDS ORDERED: methylPREDNISolone SOD SUCCI 125 MG/2 ML VIAL IV STA (17:10)
[2019-07-18 17:43] LABS: ALT 18 U/L (4-34); AST 28 U/L (14-36); African American GFR (CKD) >90 (>60 ml/min/1.73 sqM); Albumin 3.7 g/dL (3.5-5.0); Alkaline Phosphatase 77 U/L (38-126); Anion Gap 8 mmol/L; Blood Urea Nitrogen 12 mg/dL (7-17); Calcium 8.8 mg/dL (8.4-10.2); Carbon Dioxide 24 mmol/L (22-30); Chloride 107 mmol/L (98-107); Glucose 92 mg/dL (74-99); Magnesium 1.9 mg/dL (1.6-2.3); Non-African American GFR(CKD) 87 (>60 ml/min/1.73 sqM); Potassium 3.8 mmol/L (3.5-5.1); Sodium 139 mmol/L (137-145); Total Bilirubin 0.4 mg/dL (0.2-1.3); Total Protein 6.3 g/dL (6.3-8.2)
[2019-07-18 17:46] LABS: Basophils # (A) 0.1 k/uL (0-0.2); Basophils % (A) 1 %; Eosinophils # (A) 0.1 k/uL (0-0.7); Eosinophils % (A) 1 %; HCT 46.6 % (34.0-46.0); HGB 15.5 gm/dL (11.4-16.0); Lymphocytes % (A) 14 %; MCH 32.2 pg (25.0-35.0); MCHC 33.3 g/dL (31.0-37.0); MCV 96.6 fL (80.0-100.0); Mean Platelet Volume 9.9; Monocytes # (A) 0.4 k/uL (0-1.0); Monocytes % (A) 6 %; Neutrophils # (A) 5.5 k/uL (1.3-7.7); Neutrophils % (A) 76 %; Platelet Count 139 k/uL (150-450); RBC 4.82 m/uL (3.80-5.40); RDW 13.4 % (11.5-15.5); WBC 7.2 k/uL (3.8-10.6)
[2019-07-18 17:54] LABS: INR 0.9 (<1.2); Partial Thromboplastin Time 28.6 sec (22.0-30.0)
[2019-07-18 17:57] LABS: D-Dimer 0.75 mg/L FEU (<0.60)
--- NOTE | 2019-07-18 18:47 | ED ---
General Adult HPI - General Chief complaint: Chest Pain Stated complaint: chest pain, SOB Time Seen by Provider: 07/18/19 17:04 Source: patient Mode of arrival: ambulatory Limitations: no limitations - History of Present Illness Initial comments: 48-year-old female patient presents to the emergency department today for evaluation of burning chest pain, cough, and shortness of breath. Patient states his been experiencing symptoms for the last couple of days. States she's been having upper respiratory symptoms for the last week or so. Patient does a dmit to smoking cigarettes. States she is coughing up yellow sputum. She does not do any breathing treatments her inhalers at home. States she has been having fevers, highest was 101.6F. She denies nausea or vomiting. Denies sweats. She denies any dizziness. She is reporting increased fatigue states she feels weak and tired. Patient denies any recent rash, abdominal pain, diarrhea, constipation, back pain, numbness, tingling, dizziness, hematuria, dysuria, urinary urgency, urinary frequency, headache, visual changes, or any other complaints. - Related Data Home Medications Medication Instructions Recorded Confirmed Ascorbic Acid [Vitamin C] 500 mg PO DAILY 04/18/17 04/18/17 Cyanocobalamin (Vitamin B-12) 1,000 mcg PO DAILY 04/18/17 04/18/17 [Vitamin B-12] Melatonin 3 mg PO HS 04/18/17 04/18/17 DULoxetine HCL [Cymbalta] 60 mg PO DAILY 04/19/17 04/19/17 Previous Rx's Medication Instructions Recorded Albuterol Inhaler [Ventolin Hfa 2 puff INHALATION Q6HR PRN #1 04/21/17 Inhaler] inhaler Levofloxacin [Levaquin] 500 mg PO DAILY@1200 #3 tab 04/21/17 guaiFENesin [Mucinex] 600 mg PO Q12HR tab 04/21/17 predniSONE 10 mg PO DAILY #30 tab 04/21/17 Allergies Allergy/AdvReac Type Severity Reaction Status Date / Time No Known Allergies Allergy Verified 07/18/19 16:56 Review of Systems ROS Statement: Those systems with pertinent positive or pertinent negative responses have been documented in the HPI. ROS Other: All systems not noted in ROS Statement are negative. Past Medical History Past Medical History: No Reported History Additional Past Medical History / Comment(s): depression History of Any Multi-Drug Resistant Organisms: None Reported Past Surgical History: Section Additional Past Surgical History / Comment(s): let arm cyst removal Past Psychological History: Anxiety, Depression Smoking Status: Current every day smoker Past Alcohol Use History: None Reported Past Drug Use History: None Reported General Exam Limitations: no limitations General appearance: alert, in no apparent distress, other (This is a well- developed, well-nourished adult female patient who appears to be in mild respiratory distress. Vital signs upon presentation are temperature 99.0F, pulse 111, respirations 18, blood pressure 170/75, pulse ox 92% on room air.) Eye exam: Present: normal appearance, PERRL, EOMI. Absent: scleral icterus, conjunctival injection, periorbital swelling ENT exam: Present: normal exam, normal oropharynx, mucous membranes moist Respiratory exam: Present: decreased breath sounds. Absent: normal lung sounds bilaterally, respiratory distress, wheezes, rales, rhonchi, stridor Cardiovascular Exam: Present: regular rate, normal rhythm, normal heart sounds. Absent: systolic murmur, diastolic murmur, rubs, gallop, clicks GI/Abdominal exam: Present: soft, normal bowel sounds. Absent: distended, tenderness, guarding, rebound, rigid Neurological exam: Present: alert, oriented X3, CN II-XII intact Psychiatric exam: Present: normal affect, normal mood Skin exam: Present: warm, dry, intact, normal color. Absent: rash Course Vital Signs 07/18/19 07/18/19 07/18/19 16:52 18:18 18:27 Temperature 99 F Pulse Rate 56 L 104 H 104 H Respiratory 18 Rate Blood Pressure 170/75 O2 Sat by Pulse 92 L Oximetry 07/18/19 07/18/19 19:13 19:31 Temperature Pulse Rate 98 Respiratory 18 Rate Blood Pressure 115/69 O2 Sat by Pulse 98 87 L Oximetry EKG Findings - EKG Comments: EKG Findings:: EKG obtained at 1711 shows sinus tachycardia with a ventricular rate of 112, CA interval 144, QRS duration 76, QT 320, QTC 436. No evidence of ST elevation or depression. Medical Decision Making - Medical Decision Making 48-year-old female patient presents to emergency department today for evaluation of chest pain, shortness of breath, and fatigue. Physical examination did reveal decreased respiratory sounds with some faint wheezing. Oxygen saturation 92% on room air. Labs reviewed and did reveal elevated d-dimer at 0.75. Reported negative. CT angiography of the chest was negative for any acute process, no pulmonary embolism. We did attempt ambulation after receiving breathing treatment and steroids, she was 87% on room air. We'll admit to the hospital for hypoxic respiratory failure most likely from COPD. We will continue breathing treatments and steroids. We'll consult pulmonology. - Lab Data Result diagrams: 07/18/19 17:20 07/18/19 17:20 Lab Results 07/18/19 07/18/19 07/18/19 Range/Units 17:20 17:20 17:20 WBC 7.2 (3.8-10.6) k/uL RBC 4.82 (3.80-5.40) m/uL Hgb 15.5 (11.4-16.0) gm/dL Hct 46.6 H (34.0-46.0) % MCV 96.6 (80.0-100.0) fL MCH 32.2 (25.0-35.0) pg MCHC 33.3 (31.0-37.0) g/dL RDW 13.4 (11.5-15.5) % Plt Count 139 L (150-450) k/uL Neutrophils % 76 % Lymphocytes % 14 % Monocytes % 6 % Eosinophils % 1 % Basophils % 1 % Neutrophils # 5.5 (1.3-7.7) k/uL Lymphocytes # 1.0 (1.0-4.8) k/uL Monocytes # 0.4 (0-1.0) k/uL Eosinophils # 0.1 (0-0.7) k/uL Basophils # 0.1 (0-0.2) k/uL PT 10.0 (9.0-12.0) sec INR 0.9 (<1.2) APTT 28.6 (22.0-30.0) sec D-Dimer 0.75 H (<0.60) mg/L FEU Sodium 139 (137-145) mmol/L Potassium 3.8 (3.5-5.1) mmol/L Chloride 107 (98-107) mmol/L Carbon Dioxide 24 (22-30) mmol/L Anion Gap 8 mmol/L BUN 12 (7-17) mg/dL Creatinine 0.80 (0.52-1.04) mg/dL Est GFR (CKD-EPI)AfAm >90 (>60 ml/min/1.73 sqM) Est GFR (CKD-EPI)NonAf 87 (>60 ml/min/1.73 sqM) Glucose 92 (74-99) mg/dL Calcium 8.8 (8.4-10.2) mg/dL Magnesium 1.9 (1.6-2.3) mg/dL Total Bilirubin 0.4 (0.2-1.3) mg/dL AST 28 (14-36) U/L ALT 18 (4-34) U/L Alkaline Phosphatase 77 (38-126) U/L Troponin I (0.000-0.034) ng/mL NT-Pro-B Natriuret Pep pg/mL Total Protein 6.3 (6.3-8.2) g/dL Albumin 3.7 (3.5-5.0) g/dL 07/18/19 07/18/19 Range/Units 17:20 17:20 WBC (3.8-10.6) k/uL RBC (3.80-5.40) m/uL Hgb (11.4-16.0) gm/dL Hct (34.0-46.0) % MCV (80.0-100.0) fL MCH (25.0-35.0) pg MCHC (31.0-37.0) g/dL RDW (11.5-15.5) % Plt Count (150-450) k/uL Neutrophils % % Lymphocytes % % Monocytes % % Eosinophils % % Basophils % % Neutrophils # (1.3-7.7) k/uL Lymphocytes # (1.0-4.8) k/uL Monocytes # (0-1.0) k/uL Eosinophils # (0-0.7) k/uL Basophils # (0-0.2) k/uL PT (9.0-12.0) sec INR (<1.2) APTT (22.0-30.0) sec D-Dimer (<0.60) mg/L FEU Sodium (137-145) mmol/L Potassium (3.5-5.1) mmol/L Chloride (98-107) mmol/L Carbon Dioxide (22-30) mmol/L Anion Gap mmol/L BUN (7-17) mg/dL Creatinine (0.52-1.04) mg/dL Est GFR (CKD-EPI)AfAm (>60 ml/min/1.73 sqM) Est GFR (CKD-EPI)NonAf (>60 ml/min/1.73 sqM) Glucose (74-99) mg/dL Calcium (8.4-10.2) mg/dL Magnesium (1.6-2.3) mg/dL Total Bilirubin (0.2-1.3) mg/dL AST (14-36) U/L ALT (4-34) U/L Alkaline Phosphatase (38-126) U/L Troponin I <0.012 (0.000-0.034) ng/mL NT-Pro-B Natriuret Pep 122 pg/mL Total Protein (6.3-8.2) g/dL Albumin (3.5-5.0) g/dL - Radiology Data Radiology results: report reviewed, image reviewed CT chest angiography for pulmonary embolism was obtained. Report was reviewed in its entirety. Impression by Dr. Herrmann shows negative exam. No evidence of pulmonary embolism. Low density 1.7 cm mass left adrenal gland suggestive of benign disease. Disposition Clinical Impression: COPD (chronic obstructive pulmonary disease), Hypoxia Disposition: ADMITTED IP TO THIS [facility] Condition: Serious Referrals: Bernardo Cloud DO [Primary Care Provider] - 1-2 days Decision to Admit Reason: Admit from EC Decision Date: 07/18/19 Decision Time: 19:44
--- NOTE | 2019-07-18 19:06 | CT ---
EXAMINATION TYPE: CT chest angio for PE DATE OF EXAM: 07/18/2019 COMPARISON: None HISTORY: Shortness of breath, chest pain, cough and elevated d-dimer. CT DLP: 438.1 mGycm Automated exposure control for dose reduction was used. CONTRAST: Performed with IV Contrast, patient injected with 75ml mL of Isovue 370. There are 3-D post processed images. The lungs are clear of consolidation. There is no evidence of a pulmonary mass. There is no pleural e ffusion. There is no mediastinal adenopathy. There are no hilar masses. Thoracic aorta is intact. There is spurring in the thoracic spine to mild degree. I see no bony destructive process. There is no evidence of thoracic aortic aneurysm or dissection. There is normal contrast opacificatio n of the pulmonary arteries. I see no filling defect. IMPRESSION: Negative exam. No evidence of pulmonary embolism. Low density 1.7 cm mass left adrenal gland suggestive of benign disease.
[2019-07-18] MEDS ORDERED: IPRATROPIUM-ALBUTEROL 3 ML NEB INHALATION PRN (19:40)
[2019-07-18] MEDS ORDERED: AZITHROMYCIN 500 MG in SODIUM CHLORIDE 0.9% 250 ML IVPB STA (19:44)
[2019-07-18] MEDS: IPRATROPIUM-ALBUTEROL 3 ML NEB INHALATION SCH (21:10)
[2019-07-18] MEDS: guaiFENesin 600 MG TABLET.ER PO SCH (21:16)
[2019-07-18] MEDS: methylPREDNISolone SOD SUCCI 125 MG/2 ML VIAL IV SCH (23:46)
[2019-07-19] MEDS: IPRATROPIUM-ALBUTEROL 3 ML NEB INHALATION SCH ×6 (00:42→19:26)
[2019-07-19] MEDS: methylPREDNISolone SOD SUCCI 125 MG/2 ML VIAL IV SCH (04:35)
[2019-07-19] MEDS: AZITHROMYCIN 500 MG in SODIUM CHLORIDE 0.9% 250 ML IVPB SCH (06:52)
[2019-07-19] MEDS: NICOTINE 14MG/24HR PATCH TRANSDERM SCH (06:55)
[2019-07-19] MEDS: guaiFENesin 600 MG TABLET.ER PO SCH ×2 (06:55→21:00)
[2019-07-19] MEDS ORDERED: ASPIRIN-ACET-CAFF 250-250-65MG 1 EACH TAB PO PRN (10:09)
[2019-07-19] MEDS ORDERED: FAMOTIDINE 20 MG TAB PO SCH (10:15)
[2019-07-19] MEDS ORDERED: predniSONE 20 MG TAB PO SCH (11:15)
--- NOTE | 2019-07-19 11:15 | P.HPIM ---
History of Present Illness H&P Date: 07/19/19 48 years old female patient of Dr. De La Torre who was having upper respiratory symptoms for the past 1 week. She came to be the symptoms worsen and patient was unable to breathe. Patient underwent multiple treatments in the ER with no improvement End and was admitted for COPD exacerbation. On evaluation patient documents fever as high as 101, endorses cough with phlegm production and shortness of breath. Patient endorses congestion and central chest pain on breathing and burning sensation in the chest Denies any palpitation dizziness nausea or vomiting. Assessment O vitals patient's temp is 98.2 pulse 98 respiratory rate 17 and blood pressure 93/64 oxygen saturation 91 on room air. Assessment of blood work patient's WBC 7.2 d-dimer 0.75 CT is negative for pulmonary embolism creatinine 0.8. Continue Solu-Medrol 60 every 6. Continue DuoNeb as needed for shortness of breath. Patient received a dose of Rocephin and azithromycin in the ER. Continue azithromycin Review of Systems Constitutional: Denies chills, Denies fever, Denies lethargy, Denies malaise, Denies poor appetite, Denies weakness, Denies weight loss Eyes: denies decreased vision, denies diplopia, denies discharge, denies pain Ears: deny: decreased hearing Ears, nose, mouth and throat: Denies dental pain, Denies headache, Denies nasal discharge, Denies nose pain Cardiovascular: Denies chest pain, Denies decreased exercise tolerance, Denies edema, Denies high blood pressure, Denies irregular heart beat, Denies palpitations, Denies paroxysmal nocturnal dyspnea, Denies rapid heart beat, Denies shortness of breath Respiratory: Endorses congestion cough, cough with sputum, dyspnea, wheezing Gastrointestinal: Denies abdominal pain, Denies change in bowel habits, Denies coffee ground emesis, Denies early satiety, Denies excessive gas, Denies heartburn, Denies hematemesis, Denies hematochezia, Denies loss of appetite, Denies nausea, Denies vomiting Genitourinary: Denies dysuria, Denies flank pain, Denies kidney stones, Denies menorrhagia, Denies urgency, Denies urinary frequency Musculoskeletal: Denies gait dysfunction, Denies limitation of motion, Denies morning stiffness, Denies muscle cramps Integumentary: Denies rash, Denies wounds, Denies brittle nails, Denies change in hair/nails, Denies darkening of skin Neurological: Denies balance difficulties, Denies change in speech, Denies double vision, Denies gait dysfunction, Denies loss of vision, Denies motor disturbance, Denies numbness, Denies paralysis, Denies paresthesias, Denies seizures Psychiatric: Denies anxiety, Denies depression Endocrine: Denies excessive sweating, Denies excessive thirst, Denies high blood sugars, Denies palpitations Hematologic/Lymphatic: Denies easy bruising, Denies lymphadenopathy Past Medical History Past Medical History: COPD Additional Past Medical History / Comment(s): depression History of Any Multi-Drug Resistant Organisms: None Reported Past Surgical History: Section Additional Past Surgical History / Comment(s): let arm cyst removal Past Psychological History: Anxiety, Depression Smoking Status: Current every day smoker Past Alcohol Use History: None Reported Past Drug Use History: None Reported Medications and Allergies Home Medications Medication Instructions Recorded Confirmed Type [id number]-[id number] 2 tab PO Q4HR PRN 07/18/19 07/18/19 History [Excedrin] Allergies Allergy/AdvReac Type Severity Reaction Status Date / Time No Known Allergies Allergy Verified 07/18/19 20:33 Physical Exam Vitals: Vital Signs Temp Pulse Pulse Resp BP BP Pulse Ox 07/19/19 07:00 98.2 F 98 17 93/64 91 L 07/19/19 06:02 100 07/19/19 05:26 100 07/19/19 02:59 98.2 F 84 16 101/67 91 L 07/18/19 21:35 97.6 F 07/18/19 21:32 94.6 F L 98 20 94/64 07/18/19 21:25 106 H 07/18/19 21:20 92 L 07/18/19 21:10 100 07/18/19 21:00 93 19 121/74 95 07/18/19 19:31 87 L 07/18/19 19:13 98 18 115/69 98 07/18/19 18:27 104 H 07/18/19 18:18 104 H 07/18/19 16:52 99 F 56 L 18 170/75 92 L Intake and Output 07/18/19 07/19/19 07/19/19 22:59 06:59 14:59 Intake Total 940 580 Balance 940 580 Intake: Intake, IV Titration 250 Amount Azithromycin 500 mg In 250 Sodium Chloride 0.9% 250 ml @ 250 mls/hr IVPB ONCE STA Rx#:[id number] Oral 690 580 Other: Voiding Method Toilet # Voids 2 Weight 63.503 kg - Constitutional General appearance: cooperative, no acute distress, obese - EENT Eyes: anicteric sclerae, PERRLA, normal appearance ENT: hearing grossly normal - Neck Neck: no lymphadenopathy, normal ROM, no other, no rigidity, no stridor, no thyromegaly - Respiratory Respiratory: bilateral: Diminished air entry bilaterally, minimal wheezing noted posteriorly - Cardiovascular Rhythm: regular Heart sounds: normal: S1, S2 Abnormal Heart Sounds: no systolic murmur, no diastolic murmur, no rub, no S3 Gallop, no S4 Gallop, no click, no other - Gastrointestinal General gastrointestinal: normal bowel sounds, soft tender in the epigastric - Integumentary Integumentary: no rash - Neurologic Neurologic: CNII-XII intact - Musculoskeletal Musculoskeletal: gait normal, strength equal bilaterally - Psychiatric Psychiatric: A&O x's 3, appropriate affect Results CBC & Chem 7: 07/18/19 17:20 07/18/19 17:20 Labs: Abnormal Lab Results - Last 24 Hours (Table) 07/18/19 07/18/19 Range/Units 17:20 17:20 Hct 46.6 H (34.0-46.0) % Plt Count 139 L (150-450) k/uL D-Dimer 0.75 H (<0.60) mg/L FEU Thrombosis Risk Factor Assmnt - DVT/VTE Prophylaxis DVT/VTE Prophylaxis: Mechanical Prophylaxis ordered - Choose All That Apply Any of the Below Risk Factors Present?: Yes Each Factor Represents 1 point: Age 41-60 years, Obesity (BMI >25) Other Risk Factors: No Thrombosis Risk Factor Assessment Total Risk Factor Score: 2 Thrombosis Risk Factor Assessment Level: Low Risk Assessment and Plan Plan: 1 acute hypoxic respiratory failure secondary to acute COPD exacerbation continue Solu-Medrol 40 every 8. DuoNeb as needed for shortness of breath. Sputum culture. Azithromycin 500 mg by mouth daily influenza A and B was negative troponin 3 was negative #2 history of tobacco use. Nicotine patch 21 mg to be replaced daily. Patient advised on smoking cessation #3 gastritis will start patient on Pepcid 20 mg by mouth twice a day as patient is tender on examination #3 DVT prophylaxis with ambulation #4 GI prophylaxis with Pepcid 20 mg by mouth twice a day Disposition patient to be discharged home today
[2019-07-19] MEDS: FAMOTIDINE 20 MG TAB PO SCH ×2 (11:20→20:59)
[2019-07-19] MEDS: methylPREDNISolone SOD SUCCI 40 MG/ML 1 ML VIAL IV SCH (17:04)
[2019-07-19 17:11] LABS: Glucose,Whole Blood 206 mg/dL (75-99)
[2019-07-19] MEDS: SYMBICORT 160-4.5 MCG INHALER INHALATION SCH (19:27)
[2019-07-19 20:35] LABS: Glucose,Whole Blood 217 mg/dL (75-99)
--- NOTE | 2019-07-19 23:25 | CONS ---
CONSULTATION PULMONARY/CRITICAL CARE CONSULTATION: DATE OF CONSULTATION: This is a 48-year-old female who I am seeing for shortness of breath and chest pain. This is a 48-year-old female who comes to the emergency room. She came in ambulatory. She complains of burning chest pain, cough and shortness of breath. She has been having these symptoms for a couple days prior to admission. She apparently had been having upper respiratory tract symptoms for about a week or so prior to admission. She is a heavy cigarette smoker. She has been coughing up yellow phlegm. She does not take any medications for breathing at home. She does not use a nebulizer machine, has never used inhalers. She has never seen a lung doctor and never been diagnosed with chronic lung disease, even though she has been smoking for a number years. She has probably been smoking for about 30 years or so. She smokes about a pack a day. She also apparently had fever at home up to 101.6 according to the ER remberto. She denies any nausea, vomiting or diarrhea. There was no chills. There was no dizziness. There was no genitourinary complaints. There was no rash. The patient was seen in the emergency room, admitted with a diagnosis of COPD exacerbation and acute infectious bronchitis. CURRENT HOME MEDICATIONS: Include vitamin C, vitamin B12, melatonin, Cymbalta, albuterol inhaler, Levaquin, Mucinex, and prednisone. I believe the Levaquin, albuterol inhaler, prednisone and Mucinex were just recently given to her by her family doctor for the upper respiratory tract infection. I do not believe these are chronic medications. ALLERGIES: Denied. PAST MEDICAL HISTORY: Positive for no major medical issues. She does have some insomnia for which she takes melatonin. She is not quite sure why she takes Cymbalta. It may relate to anxiety/depression. There is no other significant past medical history. PAST SURGICAL HISTORY: Includes a and a left arm cyst excision. SOCIAL HISTORY: Positive for ongoing tobacco use. She has been smoking for 30 years at least a pack a day maybe more. She denies any alcohol use or illicit drug use. FAMILY HISTORY: Family history is unremarkable. Both mother and father are healthy she believes. She believes her parents may suffer from chronic lung disease from tobacco use as well. REVIEW OF SYSTEMS: CONSTITUTIONAL: Fever. NEUROLOGIC: Negative. HEENT: Negative. CARDIOVASCULAR: Negative. PULMONARY: Shortness of breath, cough, chest congestion, chest tightness, phlegm production which is yellow. GI: Negative. : Negative. RHEUMATOLOGIC: Negative. IMMUNOLOGIC: Negative. ENDOCRINOLOGIC: Negative. DERMATOLOGIC: Negative. PHYSICAL EXAMINATION: Current vital signs are reviewed. Her current temperature is 98.2. Her T-max while inpatient is 99 degrees. Heart rate is 96, respiratory rate 17, blood pressure 93/64, mean 73 and room air saturation 91%. Saturation on 2 L is 96%. Appears in no acute distress. There is no audible wheezing, use of accessory muscles or conversational dyspnea. HEENT examination is grossly unremarkable. Nasal O2 in place at 2 L. NECK: Supple. Full range of motion. No adenopathy. Neck veins are flat. CARDIOVASCULAR examination reveals regular rhythm and rate. Heart rate about 90 beats per minute. S1, S2 normal. There is no murmur. LUNGS: Reveal coarse inspiratory and expiratory wheezes and rhonchi. There is prolongation on forced maneuver. There are no crackles. Adventitious lung sounds are more prominent on forced maneuver. She coughs and wheezes on forced maneuver. ABDOMEN: Soft, but obese. Bowel sounds are heard. EXTREMITIES are intact. No cyanosis, clubbing, or edema. SKIN: Without rash. NEUROLOGIC: Examination is brief but nonfocal. LABS: Reviewed. White count 7.2, hemoglobin 15.5, hematocrit 46.6, platelet count a 139,000. D-dimer 0.75. PT/INR normal. The comprehensive metabolic profile is completely normal. The troponins were negative x3. N-terminal proBNP 122. Influenza studies were negative. As I mentioned. Sodium, potassium, chloride, CO2, anion gap, BUN and creatinine are all normal. The patient did not have a chest x-ray here. A CT angiogram of the chest reveals no evidence of pulmonary embolism. The lungs are clear of consolidation. There is no mass or pleural effusion. Current medications are reviewed. She is currently on Zithromax, was on Rocephin but that has been discontinued, guaifenesin, albuterol and Atrovent updrafts, Solu-Medrol and a nicotine patch. ASSESSMENT: 1. Chronic obstructive pulmonary disease exacerbation complicated by purulent tracheobronchitis without zak pneumonia. 2. Ongoing tobacco use with nicotine addiction, with probable underlying chronic obstructive pulmonary disease although never actually evaluated by lung doctor. 3. No evidence of pulmonary embolism by CT angiogram. 4. History of anxiety/depression. 5. Previous history of . PLAN: The patient's medications will be reviewed. Please see my orders. Will make sure she is on short-acting beta agonist, short-acting muscarinic antagonist, a combination inhaled corticosteroids/long-acting beta agonist, steroids, and oral antibiotic. Additional recommendations and suggestions are forthcoming. CT angiogram was negative for PE. The patient is counseled about the importance of smoking cessation. MMODL / IJN: [id number] /
[2019-07-20] MEDS: methylPREDNISolone SOD SUCCI 40 MG/ML 1 ML VIAL IV SCH ×2 (00:10→08:01)
[2019-07-20] MEDS: IPRATROPIUM-ALBUTEROL 3 ML NEB INHALATION SCH ×3 (00:44→08:33)
[2019-07-20 07:34] VITALS: BP 116/80; RESP 15; TEMP 98.7
[2019-07-20] MEDS: FAMOTIDINE 20 MG TAB PO SCH (08:01)
[2019-07-20] MEDS: NICOTINE 14MG/24HR PATCH TRANSDERM SCH (08:01)
[2019-07-20] MEDS: AZITHROMYCIN 500 MG in SODIUM CHLORIDE 0.9% 250 ML IVPB SCH (08:01)
[2019-07-20] MEDS: guaiFENesin 600 MG TABLET.ER PO SCH (08:01)
--- NOTE | 2019-07-20 08:31 | P.CONS ---
<Oriana Kaur A - Last Filed: 07/20/19 08:22> History of Present Illness - Reason for Consult Consult date: 07/20/19 Positive blood culture - History of Present Illness This is a 48-year-old female patient experiencing upper respiratory symptoms for approximately one week with increasing shortness of breath, patient admits to fever and chills at home, cough with yellow sputum production. Patient did not seek treatment prior to presentation to [facility] emergency center. She was found to be afebrile, pulse ox 91% on room air, blood pressure 93/64, WBC 7.2, influenza testing negative, d-dimer 0.[address] of the chest was negative for pulmonary embolism. Electrolytes and liver function tests were normal, albumin 3.7, BUN 12 and creatinine 0.8. Troponin is negative on 3 draws. Blood culture returned positive for gram-positive cocci. Patient states that her breathing status is improved. She is able to ambulate in her room with minimal shortness of breath. She is on oxygen and maintaining pulse ox of 98%. She received 1 dose of ceftriaxone in the emergency center is currently on azithromycin. Patient is followed by Dr. Bradford for COPD exacerbation and purulent tracheobronchitis. Review of Systems Constitutional: Reports chills, Reports fatigue, Reports fever, Reports weakness, Denies poor appetite Eyes: denies blurred vision, denies pain Ears, nose, mouth and throat: Denies dental pain, Denies headache, Denies mouth pain, Denies sore throat Cardiovascular: Denies chest pain, Denies leg edema, Denies shortness of breath, Denies syncope Respiratory: Reports cough, Reports cough with sputum, Reports dyspnea, Denies excessive sputum, Denies hemoptysis, Denies home oxygen Gastrointestinal: Denies abdominal pain, Denies diarrhea, Denies loss of tomeka etite, Denies nausea, Denies vomiting Genitourinary: Denies dysuria, Denies hematuria, Denies urgency, Denies urinary frequency Musculoskeletal: Denies frequent falls, Denies gait dysfunction, Denies muscle weakness, Denies myalgias Integumentary: Denies pruritus, Denies rash, Denies wounds Neurological: Denies confusion, Denies gait dysfunction, Denies numbness, Denies weakness Psychiatric: Denies anxiety, Denies depression Endocrine: Denies fatigue, Denies weight change Past Medical History Past Medical History: COPD Additional Past Medical History / Comment(s): depression History of Any Multi-Drug Resistant Organisms: None Reported Past Surgical History: Section Additional Past Surgical History / Comment(s): let arm cyst removal Past Psychological History: Anxiety, Depression Smoking Status: Current every day smoker Past Alcohol Use History: None Reported Additional Past Alcohol Use History / Comment(s): Patient is a smoker one pack per day for 26 years. She denies any marijuana, street drug or alcohol use. She lives at home with her 2 daughters. She works in a [employer] and [employer]. There are 2 cats in 3 dogs in the home. Past Drug Use History: None Reported Medications and Allergies Home Medications Medication Instructions Recorded Confirmed Type Ulesvuh-Lqnt-Dggm [id number] 2 tab PO Q4HR PRN 07/18/19 07/18/19 History [Excedrin] Azithromycin [Zithromax Z-pack] 250 mg PO DIRECTED #6 tab 07/20/19 Rx Benzonatate [Tessalon Perles] 100 mg PO TID #30 cap 07/20/19 Rx Budesonide-Formot 160-4.5 Mcg 2 puff INHALATION RT-BID #1 inhaler 07/20/19 Rx [Symbicort 160-4.5 Mcg Inhaler] Famotidine [Pepcid] 20 mg PO DAILY #7 tab 07/20/19 Rx Nicotine 14Mg/24Hr Patch [Habitrol] 1 patch TRANSDERM DAILY #30 patch 07/20/19 Rx guaiFENesin [Mucinex] 600 mg PO Q12HR tablet.er 07/20/19 Rx predniSONE 40 mg PO DAILY #10 tab 07/20/19 Rx Allergies Allergy/AdvReac Type Severity Reaction Status Date / Time No Known Allergies Allergy Verified 07/18/19 20:33 Physical Exam Vitals: Vital Signs Temp Pulse Pulse Resp BP Pulse Ox 07/20/19 07:00 98.7 F 105 H 15 116/80 96 07/20/19 04:12 93 07/20/19 04:03 93 07/20/19 01:13 97.9 F 112 H 16 92/52 96 07/20/19 01:10 95 07/20/19 00:46 95 07/19/19 19:38 106 H 07/19/19 19:28 102 H 07/19/19 15:53 104 H 07/19/19 15:43 104 H 07/19/19 15:00 98.2 F 125 H 19 110/73 95 07/19/19 11:41 96 07/19/19 11:29 96 Intake and Output 07/19/19 07/20/19 07/20/19 22:59 06:59 14:59 Other: Voiding Method Toilet Toilet # Voids 1 1 Gen: This is a 48-year-old female. Patient is sitting up in a recliner and appears to be comfortable and in no acute distress. Patient is able to speak in full sentences. HEENT: Head is atraumatic, normocephalic. Pupils equal, round. Sclerae is anicteric. Oral mucous membranes are moist. No erythema edema of the oropharynx. No thrush noted. NECK: Supple. No JVD. No lymphadenopathy. No thyromegaly. LUNGS: Diminished with poor inspiratory effort. Otherwise Clear to auscultation. No wheezes or rhonchi. No intercostal retractions. HEART: Regular rate and rhythm. No murmur. ABDOMEN: Soft. Bowel sounds are present. No masses. No tenderness. EXTREMITIES: No pedal edema bilaterally. No calf tenderness. Dorsalis pedis +2 bilaterally. NEUROLOGICAL: Patient is awake, alert and oriented x3. Cranial nerves 2 through 12 are grossly intact. Results CBC & Chem 7: 07/18/19 17:20 07/18/19 17:20 Labs: Abnormal Lab Results - Last 24 Hours (Table) 07/19/19 07/19/19 Range/Units 16:58 20:34 POC Glucose (mg/dL) 206 H 217 H (75-99) mg/dL Microbiology - Last 24 Hours (Table) 07/18/19 20:11 Blood Culture - Final Blood Assessment and Plan Plan: This is a 48-year-old female who presented to the hospital with acute COPD exacerbation along with purulent tracheobronchitis without pneumonia. Patient is currently on a Zithromycin. Blood culture showing gram-positive cocci most likely contamination. Repeat blood culture will be obtained. Await finalization of blood cultures. Further recommendations as patient progresses. The above dictated assessment and findings were discussed with Dr. Laura. The impression and plan of care have been directed as dictated. Oriana Kaur nurse practitioner acting as scribe for Dr. Laura. <Laura aLura - Last Filed: 07/20/19 12:27> Physical Exam Vitals: Vital Signs Temp Pulse Pulse Resp BP Pulse Ox 07/20/19 08:44 92 07/20/19 08:34 88 98 07/20/19 07:00 98.7 F 105 H 15 116/80 96 07/20/19 04:12 93 07/20/19 04:03 93 07/20/19 01:13 97.9 F 112 H 16 92/52 96 07/20/19 01:10 95 07/20/19 00:46 95 07/19/19 19:38 106 H 07/19/19 19:28 102 H 07/19/19 15:53 104 H 07/19/19 15:43 104 H 07/19/19 15:00 98.2 F 125 H 19 110/73 95 Intake and Output 07/19/19 07/20/19 07/20/19 22:59 06:59 14:59 Other: Voiding Method Toilet Toilet # Voids 1 1 Results CBC & Chem 7: 07/18/19 17:20 07/18/19 17:20 Labs: Abnormal Lab Results - Last 24 Hours (Table) 07/19/19 07/19/19 Range/Units 16:58 20:34 POC Glucose (mg/dL) 206 H 217 H (75-99) mg/dL Microbiology - Last 24 Hours (Table) 07/18/19 20:11 Blood Culture - Final Blood Assessment and Plan Plan: Consult was called in 8:27 AM , the patient was discharge by 08:55 AM and the pt was not in the room when I come to see the patient at 10:45 AM, so formal consult could not be completed 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
[2019-07-20] MEDS: SYMBICORT 160-4.5 MCG INHALER INHALATION SCH (08:33)
[2019-07-20 08:45] VITALS: PULSE 92
[2019-07-20] MEDS ORDERED: INSULIN ASPART (NovoLOG) 100 UNIT/ML VIAL SQ SCH (12:30)
--- NOTE | 2019-07-20 15:44 | P.DS ---
Providers Date of admission: 07/18/19 19:35 Expected date of discharge: 07/20/19 Attending physician: Kristopher Escobar MD Consults: 07/18/19 19:38 Consult Physician Routine Consulting Provider: Cyrus Bradford Consult Reason/Comments: COPD; Hypoxic respiratory failure Do you want consulting provider notified?: Yes 07/20/19 04:56 Consult Physician Routine Consulting Provider: Laura Laura Consult Reason/Comments: positive blood culture Do you want consulting provider notified?: Yes Primary care physician: [facility] Course: 48 years old female patient of Dr. De La Torre who was having upper respiratory symptoms for the past 1 week. She came to be the symptoms worsen and patient was unable to breathe. Patient underwent multiple treatments in the ER with no improvement End and was admitted for COPD exacerbation. On evaluation patient documents fever as high as 101, endorses cough with phlegm production and shortness of breath. Patient endorses congestion and central chest pain on breathing and burning sensation in the chest Denies any palpitation dizziness nausea or vomiting. Assessment O vitals patient's temp is 98.2 pulse 98 respiratory rate 17 and blood pressure 93/64 oxygen saturation 91 on room air. Assessment of blood work patient's WBC 7.2 d-dimer 0.75 CT is negative for pulmonary embolism creatinine 0.8. Continue Solu-Medrol 60 every 6. Continue DuoNeb as needed for shortness of breath. Patient received a dose of Rocephin and azithromycin in the ER. Continue azithromycin 1/2: Patient has been seen by Dr. Bradford for COPD exacerbation and purulent tracheobronchitis. She is continued on georgette azithromycin. Patient has been afebrile. Blood culture was positive for gram-positive cocci and consult added for Dr. Laura. Repeat blood culture has been obtained. Patient states that her shortness of breath and cough are improving. She is able to ambulate to the bathroom and back without difficulty. We will plan to stop IV fluids and increase ambulation. She is currently on Solu-Medrol at 40 mg IV every 8 hours. Pulse ox is 98% on 2 L nasal cannula. Blood sugars are running in the 200 and NovoLog scale will be added. Patient lung sounds are much improved today, plan for discharge home. Patient ambulated in the hallway without oxygen and pulse ox was at 90-91%. No need for home oxygen. Patient is discharged home in stable condition. Discharge diagnoses: 1. Acute hypoxic respiratory failure secondary to acute COPD exacerbation and tracheobronchitis. Patient had a pulse ox of 87% with no history of previous oxygen use. 2. Active tobacco use and dependence. Patient advised on smoking cessation 3. Acute gastritis. 4. Hyperglycemia secondary to steroids. 5. Blood culture positive for gram-positive cocci, possible contamination. Discharge plan: Home Impression and plan of care have been directed as dictated by the signing physician. Oriana Kaur nurse practitioner acting as scribe for signing physician. Patient Condition at Discharge: Good Plan - Discharge Summary New Discharge Prescriptions: New Nicotine 14Mg/24Hr Patch [Habitrol] 1 patch TRANSDERM DAILY #30 patch guaiFENesin [Mucinex] 600 mg PO Q12HR tablet.er Famotidine [Pepcid] 20 mg PO DAILY #7 tab predniSONE 40 mg PO DAILY #10 tab Budesonide-Formot 160-4.5 Mcg [Symbicort 160-4.5 Mcg Inhaler] 2 puff INHALATION RT-BID #1 inhaler Benzonatate [Tessalon Perles] 100 mg PO TID #30 cap Azithromycin [Zithromax Z-pack] 250 mg PO DIRECTED #6 tab Continue Hqkpnsp-Zafz-Lkjs [id number] [Excedrin] 2 tab PO Q4HR PRN PRN Reason: Pain Discharge Medication List Uhtxvpm-Zrok-Kugy [id number] [Excedrin] 2 tab PO Q4HR PRN 07/18/19 [History] Azithromycin [Zithromax Z-pack] 250 mg PO DIRECTED #6 tab 07/20/19 [Rx] Benzonatate [Tessalon Perles] 100 mg PO TID #30 cap 07/20/19 [Rx] Budesonide-Formot 160-4.5 Mcg [Symbicort 160-4.5 Mcg Inhaler] 2 puff INHALATION RT-BID #1 inhaler 07/20/19 [Rx] Famotidine [Pepcid] 20 mg PO DAILY #7 tab 07/20/19 [Rx] Nicotine 14Mg/24Hr Patch [Habitrol] 1 patch TRANSDERM DAILY #30 patch 07/20/19 [Rx] guaiFENesin [Mucinex] 600 mg PO Q12HR tablet.er 07/20/19 [Rx] predniSONE 40 mg PO DAILY #10 tab 07/20/19 [Rx] Follow up Appointment(s)/Referral(s): Cyrus Bradford DO [Doctor of Osteopathic Medicine] - 07/28/19 9:00 am Bernardo Cloud DO [Primary Care Provider] - 1 Week (Office will call you with appt date and time.) Patient Instructions/Handouts: COPD (Chronic Obstructive Pulmonary Disease) (DC) Discharge Disposition: HOME SELF-CARE
== END 2019-07-20 11:01 | disposition home or self-care (01) ==
LOC: EC 16:48 → 4SSUR 19:35
PROVIDERS: ADMIT Internal Medicine; ATTEND Internal Medicine
DX: J96.01 Acute respiratory failure with hypoxia (principal); J44.1 Chronic obstructive pulmonary disease with (acute) exacerbation; F17.210 Nicotine dependence, cigarettes, uncomplicated; K29.00 Acute gastritis without bleeding; T38.0X5A Adverse effect of glucocorticoids and synthetic analogues, initial encounter; R73.9 Hyperglycemia, unspecified; G47.00 Insomnia, unspecified; E27.9 Disorder of adrenal gland, unspecified; Z79.51 Long term (current) use of inhaled steroids; Z79.82 Long term (current) use of aspirin; Z79.2 Long term (current) use of antibiotics; Z79.52 Long term (current) use of systemic steroids; Z79.899 Other long term (current) drug therapy
CPT/HCPCS: 96376 ×3; 96366 ×4; 96365; 96375; 99285; 36415; 94640 ×5; 94760 ×2; 93005; 85379; 83880; 80053; 83735; 84484 ×2; 85025; 85610; 85730; 87040 ×2; 87502; 87076; 87186; 71275; G0378 ×3; S4990 ×2; J2920 ×2; J2930 ×2; J0456 ×3; J0696 ×2; Q9967

== ENCOUNTER 2021-07-23 22:46 | Observation (INO) | payer OTHER ==
[2021-07-24] MEDS ORDERED: IBUPROFEN 600 MG TAB PO STA (00:29)
[2021-07-24] MEDS ORDERED: ALBUTEROL NEBULIZED 2.5 MG/3 ML INHALATION STA (00:30)
--- NOTE | 2021-07-24 00:51 | XR ---
EXAMINATION TYPE: XR chest 2V DATE OF EXAM: 07/24/2021 COMPARISON: 04/18/2017 HISTORY: Short of breath. Cough TECHNIQUE: FINDINGS: Heart is normal. Lungs are clear of infiltrate. There is no heart failure. There are no hilar masses. Costophrenic angles are clear. Bony thorax is intact. IMPRESSION: Normal chest. No change.
--- NOTE | 2021-07-24 02:20 | ED ---
Fever HPI - General Chief Complaint: Shortness of Breath Stated Complaint: Upper Respiratory Symptoms Time Seen by Provider: 07/24/21 00:03 Source: patient Mode of arrival: wheelchair Limitations: altered mental status - History of Present Illness Initial Comments: This patient is a 50-year-old woman with some underlying COPD who presents to have evaluation for Covid infection. The patient over the past day or so has developed fever and chills, myalgias, cough. The patient was not very cooperative with history and physical, she wants to just sleep. Most of the history comes from the patient's daughter. They were concerned about her oxygenation at home. The patient states that she does not use any medications for COPD currently. She did have a positive Covid test prior to arrival MD Complaint: fever, weakness Onset/Timin -: days(s) Temperature Source: subjective Associated Symptoms: myalgias, headache, cough - Related Data Home Medications Medication Instructions Recorded Confirmed [id number] 2 tab PO Q4HR PRN 07/18/19 07/18/19 [Excedrin] Previous Rx's Medication Instructions Recorded Azithromycin [Zithromax Z-pack] 250 mg PO DIRECTED #6 tab 07/20/19 Benzonatate [Tessalon Perles] 100 mg PO TID #30 cap 07/20/19 Budesonide-Formot 160-4.5 Mcg 2 puff INHALATION RT-BID #1 inhaler 07/20/19 [Symbicort 160-4.5 Mcg Inhaler] Famotidine [Pepcid] 20 mg PO DAILY #7 tab 07/20/19 Nicotine 14Mg/24Hr Patch [Habitrol] 1 patch TRANSDERM DAILY #30 patch 07/20/19 guaiFENesin [Mucinex] 600 mg PO Q12HR tablet.er 07/20/19 predniSONE [Deltasone] 40 mg PO DAILY #10 tab 07/20/19 Albuterol Inhaler [Ventolin Hfa 2 puff INHALATION Q4HR PRN #8 gm 07/24/21 Inhaler] Allergies Allergy/AdvReac Type Severity Reaction Status Date / Time No Known Allergies Allergy Verified 07/23/21 22:53 Review of Systems ROS Statement: Those systems with pertinent positive or pertinent negative responses have been documented in the HPI. ROS Other: All systems not noted in ROS Statement are negative. Limitations: ROS unobtainable due to patients medical condition Constitutional: Reports: weakness Respiratory: Reports: cough, dyspnea Endocrine: Reports: fatigue Musculoskeletal: Reports: myalgia Neurological: Reports: headache Past Medical History Past Medical History: COPD Additional Past Medical History / Comment(s): depression History of Any Multi-Drug Resistant Organisms: None Reported Past Surgical History: Section Additional Past Surgical History / Comment(s): let arm cyst removal Past Psychological History: Anxiety, Depression Smoking Status: Current every day smoker Past Alcohol Use History: None Reported Past Drug Use History: None Reported General Exam Limitations: no limitations General appearance: alert, in no apparent distress Head exam: Present: atraumatic, normocephalic Eye exam: Present: normal appearance. Absent: scleral icterus, conjunctival injection Respiratory exam: Present: wheezes. Absent: respiratory distress, rales, rhonchi, stridor, accessory muscle use, decreased breath sounds, prolonged expiratory Cardiovascular Exam: Present: regular rate (Heart rate is 96 at my exam), normal rhythm, normal heart sounds. Absent: systolic murmur, diastolic murmur, rubs, gallop GI/Abdominal exam: Present: soft. Absent: distended, tenderness, guarding, rebound, rigid, mass Extremities exam: Present: normal inspection, normal capillary refill. Absent: pedal edema, calf tenderness Back exam: Present: normal inspection Neurological exam: Present: alert. Absent: motor sensory deficit Skin exam: Present: warm, dry, intact, normal color. Absent: rash Course Vital Signs 07/23/21 07/24/21 07/24/21 22:54 00:50 00:55 Temperature 101.4 F H Pulse Rate 105 H 94 99 Respiratory 20 Rate Blood Pressure 109/72 O2 Sat by Pulse 88 L Oximetry 07/24/21 07/24/21 02:17 04:40 Temperature 98.9 F Pulse Rate 93 79 Respiratory 19 Rate Blood Pressure 124/75 116/71 O2 Sat by Pulse 92 L 100 Oximetry Medical Decision Making - Medical Decision Making Patient is 50-year-old woman with covid infection. When patient is awake the O2 sats of been running 93 and 94, however when she sleeps the O2 sats did dip down to 82%. Given that the patient does not have any oxygen at home and that she has not been using COPD medications, will admit overnight for additional covid evaluation and treatment. - Lab Data Result diagrams: 07/24/21 03:00 07/24/21 03:00 Disposition Clinical Impression: COVID-19 Disposition: ADMITTED IP TO THIS HOSP Condition: Good Is patient prescribed a controlled substance at d/c from ED?: No
[2021-07-24] MEDS ORDERED: ONDANSETRON 4 MG/2 ML VIAL IVP PRN (02:36)
[2021-07-24] MEDS ORDERED: NALOXONE 0.4 MG/ML 1 ML VIAL IV PRN (02:36)
[2021-07-24] MEDS ORDERED: ACETAMINOPHEN TAB 325 MG TAB PO PRN (02:36)
[2021-07-24] MEDS ORDERED: IBUPROFEN 400 MG TAB PO PRN (02:36)
[2021-07-24] MEDS: SODIUM CHLORIDE 0.9% 1,000 ML IV SCH (02:55)
[2021-07-24 03:17] LABS: Basophils # (A) 0.1 k/uL (0-0.2); Basophils % (A) 1 %; Eosinophils # (A) 0.1 k/uL (0-0.7); Eosinophils % (A) 2 %; HCT 44.1 % (34.0-46.0); HGB 14.4 gm/dL (11.4-16.0); Lymphocytes # (A) 0.4 k/uL (1.0-4.8); Lymphocytes % (A) 6 %; MCHC 32.8 g/dL (31.0-37.0); MCV 100.8 fL (80.0-100.0); Mean Platelet Volume 9.6; Monocytes # (A) 0.6 k/uL (0-1.0); Monocytes % (A) 9 %; Neutrophils # (A) 5.1 k/uL (1.3-7.7); Neutrophils % (A) 81 %; Platelet Count 115 k/uL (150-450); RBC 4.37 m/uL (3.80-5.40); RDW 13.1 % (11.5-15.5); WBC 6.3 k/uL (3.8-10.6)
[2021-07-24 03:38] LABS: ALT 30 U/L (4-34); African American GFR (CKD) >90 (>60 ml/min/1.73 sqM); Anion Gap 9 mmol/L; Blood Urea Nitrogen 8 mg/dL (7-17); Calcium 8.8 mg/dL (8.4-10.2); Carbon Dioxide 22 mmol/L (22-30); Chloride 107 mmol/L (98-107); Glucose 108 mg/dL (74-99); Non-African American GFR(CKD) >90 (>60 ml/min/1.73 sqM); Sodium 138 mmol/L (137-145); Total Bilirubin 0.6 mg/dL (0.2-1.3)
[2021-07-24 03:46] LABS: AST 41 U/L (14-36); Albumin 3.7 g/dL (3.5-5.0); Alkaline Phosphatase 62 U/L (38-126); Potassium 4.1 mmol/L (3.5-5.1); Total Protein 6.3 g/dL (6.3-8.2)
[2021-07-24] MEDS: FAMOTIDINE 20 MG TAB PO SCH ×2 (11:08→22:19)
[2021-07-24] MEDS ORDERED: ALBUTEROL HFA INHALER INHALATION PRN (11:51)
[2021-07-24] MEDS ORDERED: PANTOPRAZOLE 40 MG/10 ML VIAL IVP SCH (12:00)
[2021-07-24 14:00] LABS: Glucose,Whole Blood 95 mg/dL (75-99)
[2021-07-24] MEDS: INSULIN ASPART (NovoLOG) 100 UNIT/ML VIAL SQ SCH ×3 (14:00→22:00)
[2021-07-24] MEDS: CHOLECALCIFEROL 25 MCG (1000 IU) TABLET PO SCH (14:03)
[2021-07-24] MEDS: ASCORBIC ACID 500 MG TAB PO SCH ×2 (14:03→22:19)
[2021-07-24] MEDS: ZINC SULFATE 220 MG CAP PO SCH (14:03)
[2021-07-24] MEDS: DEXAMETHASONE SOD PHOSPHATE 10 MG/ML 1 ML VIAL IVP SCH (14:11)
--- NOTE | 2021-07-24 16:17 | P.HPIM ---
History of Present Illness H&P Date: 07/24/21 Chief Complaint: Worsened dyspnea, malaise This is a 50-year-old female with past medical history of cervical cancer /cryoablation , COPD, ongoing nicotine dependence, gastroesophageal reflux disease, anxiety, depression and multiple other medical issues presented to the ER with complaints of worsening shortness of breath, positive headache, positive stomachache 2 days with chills since yesterday and fatigue. Denies cough. Ports exertional shortness of breath. Denies loss of smell or taste. Currently requiring 2 L nasal cannula O2 to maintain O2 sats in the 90s. Reports positive covid test prior to arrival and positive coronavirus PCR here. On admission temperature 101.4, 80% on room air, tachycardic, tachypneic. currently afebrile, maintaining O2 sats in the 90s on 2 L nasal cannula, tachycardia resolved, blood pressure stable. PPC within normal limits, hemoglobin 14.4, platelets 1:15, chemistry panel unremarkable with the exception of mild elevation of AST 41. Chest x-ray reported normal chest, no change. Received nebulized albuterol and Motrin in the ER. Past Medical History Past Medical History: Cancer, COPD, GERD/Reflux, Pneumonia Additional Past Medical History / Comment(s): Tracheobronchitis, cervical cancer/cryroablation, leg pain. History of Any Multi-Drug Resistant Organisms: None Reported Past Surgical History: Section, Cholecystectomy, Tubal Ligation Additional Past Surgical History / Comment(s): let arm cyst removal Past Anesthesia/Blood Transfusion Reactions: No Reported Reaction Smoking Status: Current every day smoker - Past Family History Mother Family Medical History: No Reported History Additional Family Medical History / Comment(s): Mother is healthy Father History Unknown: Yes Medications and Allergies Home Medications Medication Instructions Recorded Confirmed Type Albuterol Inhaler [Ventolin Hfa 2 puff INHALATION Q4HR PRN #8 gm 07/24/21 Rx Inhaler] Ergocalciferol [Vitamin D2 (1250 1,250 mcg PO TEAGUE 07/24/21 07/24/21 History Mcg = 47089 Iu)] Allergies Allergy/AdvReac Type Severity Reaction Status Date / Time No Known Allergies Allergy Verified 07/24/21 06:52 Physical Exam Vitals: Vital Signs Temp Pulse Resp BP Pulse Ox 07/24/21 13:55 82 22 133/81 90 L 07/24/21 08:49 98 F 85 18 128/90 95 07/24/21 04:40 98.3 F 79 116/71 100 07/24/21 02:36 98 07/24/21 02:35 88 L 07/24/21 02:17 98.9 F 93 19 124/75 92 L 07/24/21 00:55 99 07/24/21 00:50 94 07/23/21 22:54 101.4 F H 105 H 20 109/72 88 L Intake and Output 07/24/21 07/24/21 07/24/21 06:59 14:59 22:59 Other: Weight 63.503 kg Gen: Patient is sitting up on recliner, no acute distress.Speaking in full sentences. HEENT: Head is atraumatic, normocephalic. Pupils equal, round. Sclerae is anicteric. Oral mucous membranes are dry. No erythema edema of the oropharynx. No thrush noted. NECK: Supple. No JVD. No lymphadenopathy. No thyromegaly. LUNGS: Diminished with mild expiratory wheezes, No intercostal retractions. HEART: Regular rate and rhythm. No murmur. ABDOMEN: Soft. Bowel sounds are present. No masses. No tenderness. EXTREMITIES: No pedal edema bilaterally. No calf tenderness. Dorsalis pedis +2 bilaterally. NEUROLOGICAL: Patient is awake, alert and oriented x3. Cranial nerves 2 through 12 are grossly intact. Results CBC & Chem 7: 07/24/21 03:00 07/24/21 03:00 Labs: Abnormal Lab Results - Last 24 Hours (Table) 07/24/21 07/24/21 07/24/21 Range/Units 03:00 03:00 08:47 MCV 100.8 H (80.0-100.0) fL Plt Count 115 L (150-450) k/uL Lymphocytes # 0.4 L (1.0-4.8) k/uL Glucose 108 H (74-99) mg/dL AST 41 H (14-36) U/L Coronavirus (PCR) Detected A (Not Detectd) Thrombosis Risk Factor Assmnt - Choose All That Apply Any of the Below Risk Factors Present?: Yes Each Factor Represents 1 point: Abnormal pulmonary function (COPD), Age 41-60 years, Serious lung disease incl. pneumonia (< 1month) Other Risk Factors: Yes Each Risk Factor Represents 2 Points: Malignancy Other congenital or acquired thrombophilia - If yes, enter type in comment: No Thrombosis Risk Factor Assessment Total Risk Factor Score: 5 Thrombosis Risk Factor Assessment Level: High Risk Assessment and Plan Assessment: Acute COVID-19 infection Acute hypoxic respiratory failure secondary to the above COPD As esophageal reflux disease Anxiety Depression Ongoing nicotine dependence Plan: Continue on current medication regime ,monitoring and symptomatic treatment. Covid- cocktail initiated. Lovenox for DVT prophylaxis and Protonix for GI prophylaxis ordered. Pulmonary consulted. Nicotine cessation amanda nforced. The impression and plan of care has been dictated as directed. : I performed a history and examination of this patient, discussed the same with the dictator. I agree with the dictator's note ,documented as a scribe. Any additional findings or plans will be noted.
[2021-07-24] MEDS: ALBUTEROL HFA INHALER INHALATION SCH ×2 (19:43→20:50)
[2021-07-24] MEDS: ENOXAPARIN 40 MG/0.4 ML SYRINGE SQ SCH (20:26)
[2021-07-24 21:44] LABS: Glucose,Whole Blood 144 mg/dL (75-99)
[2021-07-25] MEDS: SODIUM CHLORIDE 0.9% 1,000 ML IV SCH (04:38)
[2021-07-25 07:38] LABS: Glucose,Whole Blood 88 mg/dL (75-99)
[2021-07-25] MEDS: ALBUTEROL HFA INHALER INHALATION SCH ×4 (08:42→20:05)
[2021-07-25] MEDS: ZINC SULFATE 220 MG CAP PO SCH (09:00)
[2021-07-25] MEDS: ENOXAPARIN 40 MG/0.4 ML SYRINGE SQ SCH (09:00)
[2021-07-25] MEDS: FAMOTIDINE 20 MG TAB PO SCH ×2 (09:00→19:54)
[2021-07-25] MEDS: CHOLECALCIFEROL 25 MCG (1000 IU) TABLET PO SCH (09:00)
[2021-07-25] MEDS: DEXAMETHASONE SOD PHOSPHATE 10 MG/ML 1 ML VIAL IVP SCH (09:00)
[2021-07-25 09:05] LABS: Basophils # (A) 0.01 X 10*3/uL (0.00-0.10); Basophils % (A) 0.2 %; Eosinophils # (A) 0 X 10*3/uL (0.04-0.35); Eosinophils % (A) 0 %; HCT 49.6 % (37.2-46.3); HGB 15.6 g/dL (12.0-15.0); Lymphocytes # (A) 1.12 X 10*3/uL (0.90-5.00); Lymphocytes % (A) 17.4 %; MCH 31.6 pg (27.0-32.0); MCHC 31.5 g/dL (32.0-37.0); MCV 100.6 fL (80.0-97.0); Mean Platelet Volume 12.3 fL (9.5-12.2); Monocytes # (A) 0.79 X 10*3/uL (0.20-1.00); Monocytes % (A) 12.3 %; Neutrophils # (A) 4.49 X 10*3/uL (1.80-7.70); Neutrophils % (A) 69.6 %; Platelet Count 133 X 10*3/uL (140-440); RBC 4.93 X 10*6/uL (4.10-5.20); RDW 13.6 % (11.5-14.5); WBC 6.44 X 10*3/uL (4.50-10.00)
[2021-07-25 11:43] LABS: Glucose,Whole Blood 106 mg/dL (75-99)
[2021-07-25] MEDS: INSULIN ASPART (NovoLOG) 100 UNIT/ML VIAL SQ SCH ×4 (14:01→19:55)
[2021-07-25] MEDS: ASCORBIC ACID 500 MG TAB PO SCH ×2 (14:07→19:54)
[2021-07-25 14:09] LABS: African American GFR (CKD) 106.6 (60.0-200.0); Anion Gap 18.7 mmol/L (10.00-18.00); BUN/Creat Ratio 16.49 Ratio (12.00-20.00); Blood Urea Nitrogen 12.4 mg/dL (9.0-27.0); C Reactive Protein 0.8 mg/dL (0.00-0.80); Calcium 9.3 mg/dL (8.7-10.3); Carbon Dioxide 18.2 mmol/L (20.0-27.5); Ferritin 87.2 ng/mL (10.0-291.0); Potassium 4.6 mmol/L (3.5-5.5)
--- NOTE | 2021-07-25 14:11 | P.CNPUL ---
History of Present Illness Consult date: 07/25/21 Requesting physician: Juana Fierro Reason for consult: dyspnea, cough, hypoxemia Chief complaint: dyspnea, cough, fever,headache, hypoxemia History of present illness: 50-year-old white female patient, without significant medical history other than chronic smoking history who follows with Dr. Cloud for primary care services presented to the emergency department on 12/22/2021 for evaluation of 1 week history of symptoms of cold blood, patient reports being tired, having headaches, fever, chills, cough, dyspnea, and hypoxia which was noted yesterday and her O2 saturation on hold pulse oximetry was 88%. patient is not vaccinated against Covid 19, she is a chronic smoker, 1 pack a day for over 20 years. She denies any chronic history of lung disease, no asthma, she denies any other chronic medical problems, patient did have a fever on presentation with a temp of 101.8F. patient states her daughter brought in a home COVID-19 test and she tested positive on its. She has not received any outpatient treatment, she was found to be positive. room air pulse ox is 92 percent, labs have been reviewed, white blood cell count is 6.3, hemoglobin is 14.4, d-dimer 0.90, electrolytes and renal profile were within normal limits, AST was 41, ALT is 30, patient has refused Remdesivir today, she states she does not know enough about the drug, she is agreeable to take Decadron. Lovenox is 40 mg daily. COVID-19 multivitamins. Review of Systems All systems: negative Constitutional: Denies chills, Denies fever Eyes: denies blurred vision, denies pain Ears, nose, mouth and throat: Denies headache, Denies sore throat Cardiovascular: Denies chest pain, Denies shortness of breath Respiratory: Reports dyspnea, Denies cough Gastrointestinal: Denies abdominal pain, Denies diarrhea, Denies nausea, Denies vomiting Genitourinary: Denies dysuria, Denies hematuria Musculoskeletal: Denies myalgias Integumentary: Denies pruritus, Denies rash Neurological: Denies numbness, Denies weakness Psychiatric: Denies anxiety, Denies depression Endocrine: Denies fatigue, Denies weight change Past Medical History Past Medical History: Cancer, COPD, GERD/Reflux, Pneumonia Additional Past Medical History / Comment(s): Tracheobronchitis, cervical cancer/cryroablation, leg pain. History of Any Multi-Drug Resistant Organisms: None Reported Past Surgical History: Section, Cholecystectomy, Tubal Ligation Additional Past Surgical History / Comment(s): let arm cyst removal Past Anesthesia/Blood Transfusion Reactions: No Reported Reaction Smoking Status: Current every day smoker - Past Family History Mother Family Medical History: No Reported History Additional Family Medical History / Comment(s): Mother is healthy Father History Unknown: Yes Medications and Allergies Home Medications Medication Instructions Recorded Confirmed Type Albuterol Inhaler [Ventolin Hfa 2 puff INHALATION Q4HR PRN #8 gm 07/24/21 Rx Inhaler] Ergocalciferol [Vitamin D2 (1250 1,250 mcg PO TEAGUE 07/24/21 07/24/21 History Mcg = 85950 Iu)] Allergies Allergy/AdvReac Type Severity Reaction Status Date / Time No Known Allergies Allergy Verified 07/24/21 06:52 Physical Exam Vitals: Vital Signs Temp Pulse Pulse Resp BP BP Pulse Ox 07/25/21 09:49 98.6 F 74 16 102/72 95 07/25/21 06:16 98.6 F 75 17 113/76 94 L 07/25/21 02:00 98.2 F 78 16 124/78 99 07/24/21 22:00 97.5 F L 63 19 102/64 95 07/24/21 21:50 19 07/24/21 19:00 97.8 F 81 20 115/82 95 07/24/21 17:05 99.7 F H 84 20 126/77 96 07/24/21 13:55 82 22 133/81 90 L Intake and Output 07/24/21 07/25/21 07/25/21 22:59 06:59 14:59 Other: Voiding Method Toilet # Voids 2 GENERAL EXAM: Alert, 50-yo female on 2 l/min, comfortable in no apparent distress. HEAD: Normocephalic/atraumatic. EYES: Normal reaction of pupils, equal size. Conjunctiva pink, sclera white. NOSE: Clear with pink turbinates. THROAT: No erythema or exudates. NECK: No masses, no JVD, no thyroid enlargement, no adenopathy. CHEST: No chest wall deformity. Symmetrical expansion. LUNGS: Equal air entry with bibasilar rales CVS: Regular rate and rhythm, normal S1 and S2, no gallops, no murmurs, no rubs ABDOMEN: Soft, nontender. No hepatosplenomegaly, normal bowel sounds, no guarding or rigidity. EXTREMITIES: No clubbing, no edema, no cyanosis, 2+ pulses and upper and lower extremities. MUSCULOSKELETAL: Muscle strength and tone normal. SPINE: No scoliosis or deformity SKIN: No rashes CENTRAL NERVOUS SYSTEM: Alert and oriented -3. No focal deficits, tone is nor mal in all 4 extremities. PSYCHIATRIC: Alert and oriented -3. Appropriate affect. Intact judgment and insight. Results - Laboratory Findings CBC and BMP: 07/25/21 06:03 07/24/21 03:00 PT/INR, D-dimer D-Dimer 0.90 mg/L FEU (<0.60) H 07/24/21 17:19 Abnormal lab findings: Abnormal Labs 07/24/21 07/24/21 07/24/21 03:00 03:00 08:47 Hgb Hct MCV 100.8 H MCHC Plt Count 115 L MPV Lymphocytes # 0.4 L Eosinophils # D-Dimer Glucose 108 H POC Glucose (mg/dL) AST 41 H Coronavirus (PCR) Detected A 07/24/21 07/24/21 07/25/21 17:19 21:44 06:03 Hgb 15.6 H Hct 49.6 H MCV 100.6 H MCHC 31.5 L Plt Count 133 L MPV 12.3 H Lymphocytes # Eosinophils # 0 L D-Dimer 0.90 H Glucose POC Glucose (mg/dL) 144 H AST Coronavirus (PCR) 07/25/21 11:39 Hgb Hct MCV MCHC Plt Count MPV Lymphocytes # Eosinophils # D-Dimer Glucose POC Glucose (mg/dL) 106 H AST Coronavirus (PCR) - Diagnostic Findings Chest x-ray: report reviewed, image reviewed Assessment and Plan Plan: Assessment: #1. Acute hypoxic respiratory failure related to acute COVID-19 related pneumonia, patient presented to the emergency department on 07/24/2021 with one week history of symptoms of fever, tiredness, dyspnea, coughing, she is not vaccinated against COVID-19. Refused Remdesivir, because she did not know what drug it was. #2. Mildly elevated d-dimer, will obtain lower extremity Dopplers and CT angios the chest to rule out possibility of VTE #3. Chronic and ongoing history of smoking #4. previous history of pneumonia #5. History of cervical cancer with prior history of cryoablation Plan: Patient has refused Remdesivir Continue Decadron 6 blood gram daily, continue Lovenox 40 mg daily Continue multivitamins Obtain CT chest angio for PE Obtain lower extremity doppler to rule out DVT Will continue to follow clinical course I performed a history & physical examination of the patient and discussed their management with my nurse practitioner, Meghan Murcia. I reviewed the nurse practitioner's note and agree with the documented findings and plan of care. Lung sounds are positive for diminished breath sounds throughout the lung posey. The findings and the impression was discussed with the patient. I atte st to the documentation by the nurse practitioner. Time with Patient: Greater than 30
--- NOTE | 2021-07-25 15:12 | US ---
EXAMINATION TYPE: US venous doppler duplex LE DATE OF EXAM: 07/25/2021 3:01 PM COMPARISON: NONE CLINICAL HISTORY: elevated d-dimer. Elevated D- dimer SIDE PERFORMED: Bilateral TECHNIQUE: The lower extremity deep venous system is examined utilizing real time linear array sonog jackson with graded compression, doppler sonography and color-flow sonography. VESSELS IMAGED: Common Femoral Vein Deep Femoral Vein Greater Saphenous Vein * Femoral Vein Popliteal Vein Small Saphenous Vein * Proximal Calf Veins (* superficial vessels) There is normal flow, compressibility, vascular waveforms. Right Leg: Negative for DVT Left Leg: Negative for DVT IMPRESSION: No evident deep venous thrombosis within the lower extremities from the level of the knee centrally
--- NOTE | 2021-07-25 15:32 | P.PN ---
Subjective Progress Note Date: 07/25/21 This is a 50-year-old female with past medical history of cervical cancer /cryoablation , COPD, ongoing nicotine dependence, gastroesophageal reflux disease, anxiety, depression and multiple other medical issues presented to the ER with complaints of worsening shortness of breath, positive headache, positive stomachache 2 days with chills since yesterday and fatigue. Denies cough. Ports exertional shortness of breath. Denies loss of smell or taste. Currently requiring 2 L nasal cannula O2 to maintain O2 sats in the 90s. Reports positive covid test prior to arrival and positive coronavirus PCR here. On admission temperature 101.4, 80% on room air, tachycardic, tachypneic. currently afebrile, maintaining O2 sats in the 90s on 2 L nasal cannula, tachycardia resolved, blood pressure stable. PPC within normal limits, hemoglobin 14.4, platelets 1:15, chemistry panel unremarkable with the exception of mild elevation of AST 41. Chest x-ray reported normal chest, no change. Received nebulized albuterol and Motrin in the ER. 07/25/2021 maintained on Covid cocktail, maintaining O2 sats in the 90s on 2 L nasal cannula. Denies chest pain, palpitations or increasing shortness of breath. Evaluated by pulmonary with recommendations noted and appreciated. Patient declined Remdesivir. Afebrile, T-max 99.7, elevated d-dimer, CTA ordered, current labs pending. Objective - Vital Signs Vital signs: Vital Signs Temp 97.4 F L 07/25/21 14:00 Pulse 77 07/25/21 14:00 Resp 16 07/25/21 14:00 BP 118/65 07/25/21 14:00 Pulse Ox 96 07/25/21 14:00 Intake & Output 07/24/21 07/25/21 07/25/21 18:59 06:59 18:59 Weight 63.503 kg Other: Voiding Method Toilet # Voids 2 - Exam Gen: Patient is sitting up on recliner, no acute distress. HEENT: Head is atraumatic, normocephalic. Sclerae anicteric.Pupils equal, round. Oral mucousa moist. NECK: Supple. No JVD. LUNGS: Diminished with fine bibasilar crackles HEART: Regular rate and rhythm. No murmur. ABDOMEN: Soft. Bowel sounds are present. No masses. No tenderness. EXTREMITIES: No pedal edema bilaterally. No calf tenderness. Dorsalis pedis +2 bilaterally. NEUROLOGICAL: Patient is awake, alert and oriented x3. Cranial nerves 2 through 12 are grossly intact. - Labs CBC & Chem 7: 07/25/21 06:03 07/25/21 06:03 Labs: Abnormal Lab Results - Last 24 Hours (Table) 07/24/21 07/24/21 07/25/21 Range/Units 17:19 21:44 06:03 Hgb 15.6 H (12.0-15.0) g/dL Hct 49.6 H (37.2-46.3) % MCV 100.6 H (80.0-97.0) fL MCHC 31.5 L (32.0-37.0) g/dL Plt Count 133 L (140-440) X 10*3/uL MPV 12.3 H (9.5-12.2) fL Eosinophils # 0 L (0.04-0.35) X 10*3/uL D-Dimer 0.90 H (<0.60) mg/L FEU Carbon Dioxide (20.0-27.5) mmol/L Anion Gap (10.00-18.00) mmol/L POC Glucose (mg/dL) 144 H (75-99) mg/dL 07/25/21 07/25/21 Range/Units 06:03 11:39 Hgb (12.0-15.0) g/dL Hct (37.2-46.3) % MCV (80.0-97.0) fL MCHC (32.0-37.0) g/dL Plt Count (140-440) X 10*3/uL MPV (9.5-12.2) fL Eosinophils # (0.04-0.35) X 10*3/uL D-Dimer (<0.60) mg/L FEU Carbon Dioxide 18.2 L (20.0-27.5) mmol/L Anion Gap 18.70 H (10.00-18.00) mmol/L POC Glucose (mg/dL) 106 H (75-99) mg/dL Assessment and Plan Assessment: Acute COVID-19 infection Acute hypoxic respiratory failure secondary to the above COPD As esophageal reflux disease Anxiety Depression Ongoing nicotine dependence Plan: Continue on current medication regime ,monitoring and symptomatic treatment. CTA to rule out PE ordered. Labs pending.Maintain Covid- cocktail. Nicotine cessation reinforced. The impression and plan of care has been dictated as directed. : I performed a history and examination of this patient, discussed the same with the dictator. I agree with the dictator's note ,documented as a scribe. Any additional findings or plans will be noted.
--- NOTE | 2021-07-25 16:14 | CT ---
EXAMINATION TYPE: CT chest angio for PE DATE OF EXAM: 07/25/2021 COMPARISON: 07/18/2019 HISTORY: 50-year-old female Elevated d-dimer, covid. TECHNIQUE: Contiguous axial scanning of the chest performed with IV Contrast, patient injected wit h 100ml mL of Isovue 370. Coronal/sagittal MIP reconstructions performed. CT DLP: 366.3 mGycm Automated exposure control for dose reduction was used. FINDINGS: Heart normal size with trace anterior basilar pericardial fluid. No flattening of the interventricula r septum or reflux of contrast into the hepatic veins. Aorta normal caliber with bovine configuration to the aortic arch. No thoracic lymphadenopathy by CT size criteria. Satisfactory opacification the pulmonary arterial system. No evidence for pulmonary embolus. Lungs show mild diffuse bronchial wall thickening. Strandy areas of atelectasis in the lower lungs. 4 mm subpleural pulmonary nodule periphery of the left base, axial image 98 not seen previously. 4 mm subpleural pulmonary nodule lateral right middle lobe, axial image 87 also not clearly seen prev iously. Six-month follow-up CT can reassess. No consolidation or pleural effusion. Visualized upper abdomen shows a stable low-density 2.1 x 1.2 cm nodule of the left adrenal gland com patible with a benign lipid rich adrenal adenoma. Stable 5 to 6 mm hypodensity central left hepatic d ome suggestive of a cyst. Bones: Mild degenerative disc disease midthoracic IMPRESSION: 1. NO EVIDENCE FOR PULMONARY EMBOLUS. STRANDY BASILAR AREAS OF ATELECTASIS. 2. MILD DIFFUSE BRONCHIAL WALL THICKENING. CORRELATE FOR BRONCHITIS OR ASTHMA. 3. A COUPLE 4 MM PULMONARY NODULES IN THE LOWER LUNGS NOT CLEARLY SEEN IN 2019. RECOMMEND 6 MONTH FOL LOW-UP CT TO REASSESS. 4. STABLE 2.1 CM BENIGN LIPID RICH LEFT ADRENAL ADENOMA.
[2021-07-25 16:38] LABS: Glucose,Whole Blood 144 mg/dL (75-99)
[2021-07-25 19:55] LABS: Glucose,Whole Blood 128 mg/dL (75-99)
[2021-07-26] MEDS: SODIUM CHLORIDE 0.9% 1,000 ML IV SCH (04:10)
[2021-07-26] MEDS ORDERED: PANTOPRAZOLE 40 MG TABLET PO SCH (07:30)
[2021-07-26 07:52] LABS: Glucose,Whole Blood 99 mg/dL (75-99)
[2021-07-26] MEDS: INSULIN ASPART (NovoLOG) 100 UNIT/ML VIAL SQ SCH ×2 (08:16→11:45)
[2021-07-26] MEDS: ALBUTEROL HFA INHALER INHALATION SCH ×3 (08:20→16:22)
[2021-07-26] MEDS: DEXAMETHASONE SOD PHOSPHATE 10 MG/ML 1 ML VIAL IVP SCH (08:43)
[2021-07-26] MEDS: ENOXAPARIN 40 MG/0.4 ML SYRINGE SQ SCH (08:44)
[2021-07-26] MEDS: ZINC SULFATE 220 MG CAP PO SCH (08:44)
[2021-07-26] MEDS: ASCORBIC ACID 500 MG TAB PO SCH (08:44)
[2021-07-26] MEDS: FAMOTIDINE 20 MG TAB PO SCH (08:44)
[2021-07-26] MEDS: CHOLECALCIFEROL 25 MCG (1000 IU) TABLET PO SCH (08:44)
[2021-07-26 11:41] LABS: Glucose,Whole Blood 107 mg/dL (75-99)
[2021-07-26 14:50] VITALS: BP 106/74; PULSE 80; RESP 16; TEMP 98.5
--- NOTE | 2021-07-26 16:46 | P.PN ---
Subjective Progress Note Date: 07/26/21 Principal diagnosis: Coronavirus associated pneumonia. 50-year-old white female patient, without significant medical history other than chronic smoking history who follows with Dr. Cloud for primary care services presented to the emergency department on 12/22/2021 for evaluation of 1 week history of symptoms of cold blood, patient reports being tired, having headaches, fever, chills, cough, dyspnea, and hypoxia which was noted yesterday and her O2 saturation on hold pulse oximetry was 88%. patient is not vaccinated against Covid 19, she is a chronic smoker, 1 pack a day for over 20 years. She denies any chronic history of lung disease, no asthma, she denies any other chronic medical problems, patient did have a fever on presentation with a temp of 101.8F. patient states her daughter brought in a home COVID-19 test and she tested positive on its. She has not received any outpatient treatment, she was found to be positive. room air pulse ox is 92 percent, labs have been reviewed, white blood cell count is 6.3, hemoglobin is 14.4, d-dimer 0.90, electrolytes and renal profile were within normal limits, AST was 41, ALT is 30, patient has refused Remdesivir today, she states she does not know enough about the drug, she is agreeable to take Decadron. Lovenox is 40 mg daily. COVID-19 multivitamins. Progress note dated 07/26/2021. 50-year-old female was admitted with a diagnosis of shortness of breath, secondary to coronavirus associated pneumonia. The patient has not been vaccinated. Currently, the patient is on room air. Saturations are 94%. There was no evidence of pulmonary embolism, or deep venous thrombosis. Initially, the patient was on 2 L. She appears relatively stable. The patient apparently refused REM. No new labs today to report. Chest x-ray, Doppler studies of the legs, and CT angiogram all reviewed. Clinically, the patient appears very stable. Room air saturation between 91 and 95%. Objective - Vital Signs Vital signs: Vital Signs Temp 98.5 F 07/26/21 14:49 Pulse 80 07/26/21 16:00 Resp 16 07/26/21 14:49 BP 106/74 07/26/21 14:49 Pulse Ox 95 07/26/21 16:00 Intake & Output 07/25/21 07/26/21 07/26/21 18:59 06:59 18:59 Output Total 200 Balance -200 Output: Urine 200 Other: Voiding Method Toilet Toilet Toilet # Voids 2 - Exam No acute distress, oriented 3. Room air saturations are 95%. HEENT examination is grossly unremarkable. Neck supple. Full range of motion. No adenopathy thyromegaly or neck vein distention. Cardiovascular examination reveals regular rhythm rate. S1-S2 normal. No S3 or S4. No discernible murmur noted. Heart rate 80 bpm. Lungs reveal mostly clear breath sounds. Minimal mild rhonchi. No wheezes or crackles. Breath sounds equal bilaterally. Saturations are excellent on room air. Abdomen soft bowel sounds are heard. No masses or tenderness. Extremities are intact. No cyanosis clubbing or edema. Skin is without rash or lesion. Neurologic examination is brief but nonfocal. - Labs CBC & Chem 7: 07/25/21 06:03 07/25/21 06:03 Labs: Abnormal Lab Results - Last 24 Hours (Table) 07/25/21 07/26/21 Range/Units 19:53 11:39 POC Glucose (mg/dL) 128 H 107 H (75-99) mg/dL Assessment and Plan Assessment: Acute mild hypoxemic respiratory failure, secondary to coronavirus associated pneumonia. No evidence of DVT on Doppler evaluation of the lower extremities, or CT angiogram evidence of pulmonary embolism. Chronic and ongoing tobacco use. Prior history of pneumonia. History of cervical cancer. Plan: Plan dated 07/26/2021. The patient apparently refused REM. Currently, on Decadron, and Lovenox. The patient is also receiving vitamin C, vitamin D3, and zinc. Dopplers of the lower extremities were negative for DVT. CT angiogram was done, and was negative for pulmonary embolism. The patient's currently on room air. She feels well. The patient could be considered for possible discharge. I did asked the nurse to walker up and down the hallway, to determine whether or not she has desaturation with exertion. Prognosis is guarded. Time with Patient: Less than 30
--- NOTE | 2021-07-27 00:28 | P.DS ---
Providers Date of admission: 07/24/21 02:36 Attending physician: Franklyn Gloria Consults: 07/24/21 16:00 Consult Physician Routine Consulting Provider: Cyrus Bradford Consult Reason/Comments: Covid Do you want consulting provider notified?: Yes Primary care physician: Franklyn Gloria [facility] Course: Diagnoses: Bilateral Covid pneumonia Acute hypoxic respiratory failure Increased inflammatory markers 4 mm lower lung nodules 2, patient will need follow-up as an outpatient, she was informed and she agrees to call and make her own appointment with police dispatcher. Risks and benefits explained right adrenal adenoma 2.1 cm, patient informed and she will follow up as an outpatient History of GERD Nicotine dependence History of anxiety and depression, not an active issue Hospital course: This is a pleasant 50 years old female who presents with respiratory distress secondary to bilateral Covid pneumonia, with mild hypoxia which is resolved and today she was on room air Patient has been evaluated and followed closely by police dispatcher. she has CT A of the chest which was negative for pulmonary embolism but showing 4 mm nodules 2 and stable right adrenal adenoma 2.1 cm per radiologist. Patient was treated with dexamethasone, vitamin C, vitamin D and zinc as well as Lovenox and Pepcid, patient showed interval movement and today she is fully awake and oriented she denies any other respiratory symptoms, she denies dyspnea or chest pain. No coughing. She is on room air at rest and with exertion, she does not qualify for home oxygen. She denies any other symptoms, no change in urine or bowel habits, no diarrhea, she tolerates diet. No nausea vomiting. No urinary symptoms or fever. Patient was cleared for discharge by pulmonary service Problems and management plan were discussed with the patient and he verbalized understanding and acceptance Patient was found stable and can be discharged home however he needs follow-up as an outpatient. Patient was instructed to follow up with PCP Dr. Gloria within one week and patient agrees Patient was instructed to follow up with police dispatcher Dr. Bradford, and she agrees to call and make her own appointment as today is weekend Physical exam Gen: patient is a AAOx3, no distress CVS: S1-S2, RRR, no murmur Lungs: B/L CTA, no wheezing Abdomen: soft, no distention, no tenderness, positive bowel sounds Extremity: no leg edema or induration Time spent more than 35 minutes Patient Condition at Discharge: Good Plan - Discharge Summary Discharge Rx Participant: No New Discharge Prescriptions: New dexAMETHasone ORAL [Hexadrol] 6 mg PO DAILY 7 Days #7 tablet Famotidine [Pepcid] 20 mg PO BID #60 tab Cholecalciferol [Vitamin D3 (25 Mcg = 1000 Iu)] 100 mcg PO DAILY #30 tablet Albuterol Inhaler [Ventolin Hfa Inhaler] 2 puff INHALATION Q4HR PRN #8 gm PRN Reason: Wheezing Zinc Sulfate [Orazinc] 220 mg PO DAILY #30 cap Ascorbic Acid [Vitamin C] 500 mg PO BID #60 tab Discontinued Ergocalciferol [Vitamin D2 (1250 Mcg = 70598 Iu)] 1,250 mcg PO TEAGUE Discharge Medication List Albuterol Inhaler [Ventolin Hfa Inhaler] 2 puff INHALATION Q4HR PRN #8 gm 07/24/21 [Rx] Ascorbic Acid [Vitamin C] 500 mg PO BID #60 tab 07/26/21 [Rx] Cholecalciferol [Vitamin D3 (25 Mcg = 1000 Iu)] 100 mcg PO DAILY #30 tablet 07/26/21 [Rx] Famotidine [Pepcid] 20 mg PO BID #60 tab 07/26/21 [Rx] Zinc Sulfate [Orazinc] 220 mg PO DAILY #30 cap 07/26/21 [Rx] dexAMETHasone ORAL [Hexadrol] 6 mg PO DAILY 7 Days #7 tablet 07/26/21 [Rx] Follow up Appointment(s)/Referral(s): Franklyn Gloria DO [Primary Care Provider] - 1-2 days Cyrus Bradford DO [Doctor of Osteopathic Medicine] - 2 Weeks (police dispatcher) Patient Instructions/Handouts: Coronavirus Disease 2019 (COVID-19) Discharge Disposition: HOME SELF-CARE
== END 2021-07-26 17:30 | disposition home or self-care (01) ==
LOC: EC 22:46 → 4SSUR 07-24 02:36
PROVIDERS: ADMIT Family Medicine; ATTEND Family Medicine
DX: U07.1 COVID-19 (principal); J12.82 Pneumonia due to coronavirus disease 2019; J96.01 Acute respiratory failure with hypoxia; Z53.29 Procedure and treatment not carried out because of patient's decision for other reasons; R91.8 Other nonspecific abnormal finding of lung field; D35.01 Benign neoplasm of right adrenal gland; K21.9 Gastro-esophageal reflux disease without esophagitis; F32.A Depression, unspecified; F41.9 Anxiety disorder, unspecified; J44.0 Chronic obstructive pulmonary disease with (acute) lower respiratory infection; F17.210 Nicotine dependence, cigarettes, uncomplicated; R79.89 Other specified abnormal findings of blood chemistry; M79.606 Pain in leg, unspecified; R51.9 Headache, unspecified; R10.9 Unspecified abdominal pain; R00.0 Tachycardia, unspecified; Z79.51 Long term (current) use of inhaled steroids; Z79.899 Other long term (current) drug therapy; Z85.41 Personal history of malignant neoplasm of cervix uteri; Z87.01 Personal history of pneumonia (recurrent); Z71.6 Tobacco abuse counseling; Z90.49 Acquired absence of other specified parts of digestive tract
CPT/HCPCS: 96376 ×2; 96372; 96374; 96375; 99285; 94640 ×5; 85379; 80053; 80048; 82728; 83615; 85025 ×2; 86140; 87635; 71046; 93970; 71275; G0378 ×3; J1100 ×3; J1650; C9113; Q9967

== ENCOUNTER 2022-04-18 13:01 | Emergency (ER) | payer OTHER ==
[2022-04-18 13:08] VITALS: TEMP 97.8
[2022-04-18] MEDS ORDERED: CYCLOBENZAPRINE 10 MG TAB PO STA (13:42)
[2022-04-18] MEDS ORDERED: KETOROLAC 15 MG/ML 1 ML VIAL IVP STA (13:43)
--- NOTE | 2022-04-18 14:12 | XR ---
EXAMINATION TYPE: XR chest 2V DATE OF EXAM: 04/18/2022 COMPARISON: 07/24/2021 HISTORY: Cough and chest pain TECHNIQUE: FINDINGS: Heart is normal. Lungs are clear of consolidation. There are no hilar masses. Bony thorax i s intact. No pleural effusion IMPRESSION: No active cardiopulmonary disease. No change.
--- NOTE | 2022-04-18 15:25 | ED ---
General Adult HPI - General Chief complaint: Extremity Injury, Upper Stated complaint: fall Time Seen by Provider: 04/18/22 13:15 Source: patient Mode of arrival: ambulatory Limitations: no limitations - History of Present Illness Initial comments: 51-year-old female presents emergency Department with reported right shoulder blade pain. States that she was raking in the yard yesterday. She awoke this morning and had significant pain in the right scapula. Pain is worse with movement and palpation of the area. She has been taking Motrin and Tylenol at home without any significant improvement in her symptoms. She denies any chest pain or shortness of breath. No ripping or tearing sensation to her back. Eyes any trauma. No numbness, tingling or weakness in her extremity. No neck or back pain. Denies fevers, chills or cough. No other alleviating, precipitating or modifying factors - Related Data Previous Rx's Medication Instructions Recorded Albuterol Inhaler [Ventolin Hfa 2 puff INHALATION Q4HR PRN #8 gm 07/24/21 Inhaler] Ascorbic Acid [Vitamin C] 500 mg PO BID #60 tab 07/26/21 Cholecalciferol [Vitamin D3 (25 100 mcg PO DAILY #30 tablet 07/26/21 Mcg = 1000 Iu)] Famotidine [Pepcid] 20 mg PO BID #60 tab 07/26/21 Zinc Sulfate [Orazinc] 220 mg PO DAILY #30 cap 07/26/21 dexAMETHasone ORAL [Hexadrol] 6 mg PO DAILY 7 Days #7 tablet 07/26/21 Cyclobenzaprine [Flexeril] 10 mg PO TID PRN #20 tab 04/18/22 Ketorolac [Toradol] 10 mg PO Q8HR #15 tab 04/18/22 Allergies Allergy/AdvReac Type Severity Reaction Status Date / Time No Known Allergies Allergy Verified 04/18/22 13:08 Review of Systems ROS Statement: Those systems with pertinent positive or pertinent negative responses have been documented in the HPI. ROS Other: All systems not noted in ROS Statement are negative. Past Medical History Past Medical History: Cancer, COPD, GERD/Reflux, Pneumonia Additional Past Medical History / Comment(s): Tracheobronchitis, cervical cancer/cryroablation, leg pain. History of Any Multi-Drug Resistant Organisms: None Reported Past Surgical History: Section, Cholecystectomy, Tubal Ligation Additional Past Surgical History / Comment(s): let arm cyst removal Past Anesthesia/Blood Transfusion Reactions: No Reported Reaction Past Psychological History: Anxiety, Depression Smoking Status: Current every day smoker Past Alcohol Use History: None Reported Past Drug Use History: None Reported - Past Family History Mother Family Medical History: No Reported History Additional Family Medical History / Comment(s): Mother is healthy Father History Unknown: Yes General Exam Limitations: no limitations General appearance: alert, in no apparent distress Head exam: Present: atraumatic, normocephalic, normal inspection Eye exam: Present: normal appearance, PERRL, EOMI. Absent: scleral icterus, conjunctival injection, periorbital swelling ENT exam: Present: normal exam, mucous membranes moist Neck exam: Present: normal inspection. Absent: tenderness, meningismus, lymphadenopathy Respiratory exam: Present: normal lung sounds bilaterally. Absent: respiratory distress, wheezes, rales, rhonchi, stridor Cardiovascular Exam: Present: regular rate, normal rhythm, normal heart sounds. Absent: systolic murmur, diastolic murmur, rubs, gallop, clicks GI/Abdominal exam: Present: soft, normal bowel sounds. Absent: distended, tenderness, guarding, rebound, rigid Extremities exam: Present: tenderness (to palpation of the medial aspect of the scapula on the right. Equal certified paralegal strength. intact sensation over the medial, lateral and dorsal bl upper extremities. 2+ radial and ulnar pulses bilaterally), normal capillary refill. Absent: pedal edema, joint swelling, calf tenderness Back exam: Present: normal inspection Neurological exam: Present: alert, oriented X3, CN II-XII intact Psychiatric exam: Present: normal affect, normal mood Skin exam: Present: warm, dry, intact, normal color. Absent: rash Course Vital Signs 04/18/22 04/18/22 04/18/22 13:02 13:05 15:51 Temperature 97.8 F 97.8 F Pulse Rate 84 84 82 Respiratory 20 20 18 Rate Blood Pressure 94/69 111/81 O2 Sat by Pulse 96 95 96 Oximetry EKG Findings - EKG Comments: EKG Findings:: EKG demonstrates sinus rhythm with a rate of 75. NE interval 156. QRS 81. QTC of 47. No acute ST segment elevations or depressions Medical Decision Making - Medical Decision Making Upon arrival patient was placed into room 17. Thorough history and physical exam was performed. 12-lead EKG was obtained. Chest x-ray was performed which demonstrates no acute process. She was given a dose of Toradol and Flexeril. Patient is reevaluated and reports to improvement in her pain. She will be discharged home on Flexeril and Toradol. Instructed to take the medications as directed. Follow up with her primary care doctor in 2-4 days and return should she have any new or worsening symptoms. Patient was agreeable and discharged home in stable condition Disposition Clinical Impression: Right shoulder pain Disposition: HOME SELF-CARE Condition: Stable Instructions (If sedation given, give patient instructions): Shoulder Pain (ED) Additional Instructions: Rest and place warm compresses to the site. No heavy lifting. Follow up with your doctor in 2-4 days. Return for any new or worsening symptoms . Prescriptions: Cyclobenzaprine [Flexeril] 10 mg PO TID PRN #20 tab PRN Reason: Muscle Spasm Ketorolac [Toradol] 10 mg PO Q8HR #15 tab Is patient prescribed a controlled substance at d/c from ED?: No Referrals: Bernardo Cloud DO [Primary Care Provider] - 1-2 days Time of Disposition: 15:25
[2022-04-18 15:53] VITALS: BP 111/81; PULSE 82; RESP 18
== END 2022-04-18 15:52 | disposition home or self-care (01) ==
LOC: EC 13:01
DX: M25.511 Pain in right shoulder (principal); F17.200 Nicotine dependence, unspecified, uncomplicated; J44.9 Chronic obstructive pulmonary disease, unspecified; Z79.51 Long term (current) use of inhaled steroids; W19.XXXA Unspecified fall, initial encounter
CPT/HCPCS: 99284; 96374; 93005; 71046; J1885

== ENCOUNTER 2023-06-05 09:34 | Emergency (ER) | payer OTHER ==
[2023-06-05 09:48] VITALS: RESP 18; TEMP 98.2
[2023-06-05] MEDS ORDERED: ONDANSETRON 4 MG/2 ML VIAL IVP STA (09:56)
[2023-06-05] MEDS ORDERED: KETOROLAC 15 MG/ML 1 ML VIAL IVP STA (09:56)
[2023-06-05] MEDS ORDERED: MORPHINE SULFATE 2 MG/ML SYRINGE IVP STA (09:56)
[2023-06-05] MEDS ORDERED: SODIUM CHLORIDE 0.9% 1,000 ML IV STA (09:56)
--- NOTE | 2023-06-05 10:01 | ED ---
Abdominal Pain HPI - General Chief Complaint: Abdominal Pain Stated Complaint: left side and back pain Time Seen by Provider: 06/05/23 09:49 Source: patient, RN notes reviewed Mode of arrival: ambulatory Limitations: no limitations - History of Present Illness Initial Comments: This is a 52-year-old female who presents to the emergency department for left- sided abdominal pain and left-sided back pain. States that when she woke up she had severe pain to the left mid and left lower quadrant which has since started to wrap around into the back. The pain has also started to make her nauseous. Denies any history of kidney stones, pancreatitis, or diverticulitis. Also denies any history of similar symptoms in the past. She has not had a bowel movement yet today, however she has not had any diarrhea or constipation. MD Complaint: abdominal pain - Related Data Previous Rx's Medication Instructions Recorded Albuterol Inhaler [Ventolin Hfa 2 puff INHALATION Q4HR PRN #8 gm 07/24/21 Inhaler] Ascorbic Acid [Vitamin C] 500 mg PO BID #60 tab 07/26/21 Cholecalciferol [Vitamin D3 (25 100 mcg PO DAILY #30 tablet 07/26/21 Mcg = 1000 Iu)] Famotidine [Pepcid] 20 mg PO BID #60 tab 07/26/21 Zinc Sulfate [Orazinc] 220 mg PO DAILY #30 cap 07/26/21 dexAMETHasone ORAL [Hexadrol] 6 mg PO DAILY 7 Days #7 tablet 07/26/21 Cyclobenzaprine [Flexeril] 10 mg PO TID PRN #20 tab 04/18/22 Ketorolac [Toradol] 10 mg PO Q8HR #15 tab 04/18/22 Ciprofloxacin HCl [Cipro] 500 mg PO Q12HR 7 Days #14 tab 06/05/23 Ketorolac [Toradol] 10 mg PO Q6HR PRN #15 tab 06/05/23 Ondansetron Odt [Zofran Odt] 4 mg PO Q8HR PRN #20 tab 06/05/23 Allergies Allergy/AdvReac Type Severity Reaction Status Date / Time No Known Allergies Allergy Verified 06/05/23 09:48 Review of Systems ROS Statement: Those systems with pertinent positive or pertinent negative responses have been documented in the HPI. ROS Other: All systems not noted in ROS Statement are negative. Past Medical History Past Medical History: Cancer, COPD, GERD/Reflux, Pneumonia Additional Past Medical History / Comment(s): Tracheobronchitis, cervical cancer/cryroablation, leg pain. History of Any Multi-Drug Resistant Organisms: None Reported Past Surgical History: Section, Cholecystectomy, Tubal Ligation Additional Past Surgical History / Comment(s): let arm cyst removal Past Anesthesia/Blood Transfusion Reactions: No Reported Reaction Past Psychological History: Anxiety, Depression Smoking Status: Current every day smoker Past Alcohol Use History: None Reported Past Drug Use History: None Reported - Past Family History Mother Family Medical History: No Reported History Additional Family Medical History / Comment(s): Mother is healthy Father History Unknown: Yes General Exam Limitations: no limitations General appearance: alert, in distress Head exam: Present: atraumatic, normocephalic, normal inspection Respiratory exam: Present: normal lung sounds bilaterally. Absent: respiratory distress, wheezes, rales, rhonchi, stridor Cardiovascular Exam: Present: regular rate, normal rhythm, normal heart sounds. Absent: systolic murmur, diastolic murmur, rubs, gallop, clicks GI/Abdominal exam: Present: soft, tenderness (LLQ and left mid abdomen), normal bowel sounds. Absent: distended Back exam: Present: CVA tenderness (L) Neurological exam: Present: alert, oriented X3, CN II-XII intact Psychiatric exam: Present: normal affect, normal mood Skin exam: Present: warm, dry, intact, normal color. Absent: rash Course Vital Signs 06/05/23 06/05/23 09:45 12:11 Temperature 98.2 F Pulse Rate 81 79 Respiratory 18 18 Rate Blood Pressure 133/86 128/79 O2 Sat by Pulse 96 94 L Oximetry Medical Decision Making - Medical Decision Making This is a 52-year-old female who presents to the emergency department for abdominal pain. Was pt. sent in by a medical professional or institution? @ -No Did you speak to anyone other than the patient for history? @ -No Did you review nursing and triage notes? @ -Yes, and I agree, it is accurate with regards to the patient's symptoms. Were old charts reviewed? @ -No Differential Diagnosis? @ -Differential Abdominal Pain Women: Appendicitis, Cholecystitis, diverticulosis, ischemic bowel, pancreatitis, hepatitis, UTI, gastroenteritis, AAA, incarcerated hernia, bowel obstruction, constipation, inflammatory bowel, hepatitis, peptic ulcer disease, splenic infarction, perforated viscus, vulvitis, ovarian torsion, PID, kidney stone, placenta abruption, this is not meant to be an all-inclusive list EKG interpreted by me (3pts min.)? @ -Not obtained X-rays interpreted by me (1pt min.)? @ -Not obtained CT interpreted by me (1pt min.)? @ -Computed tomography scan of the abdomen and pelvis obtained. My interpretation identifies no evidence of bowel wall thickening or free air. U/S interpreted by me (1pt. min.)? @ -Not obtained What testing was considered but not performed? (CT, X-rays, U/S, labs)? Why? @ -None What meds were considered but not given? Why? @ -None Did you discuss the management of the patient with other professionals? @ -No Did you reconcile home meds? @ -No Was smoking cessation discussed for >3mins.? @ -No Was critical care preformed (if so, how long)? @ -No Were there social determinants of health that impacted care today? How? (Homelessness, low income, unemployed, alcoholism, drug addiction, transportation, low edu. Level, literacy, decrease access to med. care, assisted, rehab)? @ -No Was there de-escalation of care discussed even if they declined? (Discuss DNR or withdrawal of care, Hospice)? @ -No What co-morbidities impacted this encounter? (DM, HTN, Smoking, COPD, CAD, Cancer, CVA, Hep., AIDS, mental health diagnosis, sleep apnea, morbid obesity)? @ -None Was patient admitted / discharged? @ -Discharged. Lab work obtained revealing leukocytosis with a white blood cell count of 12. Lab work was otherwise nonactionable. Patient treated with IV fluids, Toradol, and Zofran, which she felt was beneficial. Urinalysis reveals large blood without clear evidence of infection. Urine sent for culture. CT scan of the abdomen and pelvis obtained revealing left perinephric edema with normal renal enhancement arguing against pyelonephritis. Patient was given a dose of ceftriaxone in the emergency department. Prescriptions for ciprofloxacin, Toradol, and Zofran provided with dosing instructions reviewed. Otherwise advised close follow-up with her primary care provider. Patient discharged home in stable condition. Undiagnosed new problem with uncertain prognosis? @ -None Drug Therapy requiring intensive monitoring for toxicity (Heparin, Nitro, Insulin, Cardizem)? @ -None Were any procedures done? @ -None Diagnosis/symptom? @ -Left sided abdominal pain Acute, or Chronic, or Acute on Chronic? @ -Acute Uncomplicated (without systemic symptoms) or Complicated (systemic symptoms)? @ -Uncomplicated Side effects of treatment? @ -None Exacerbation, Progression, or Severe Exacerbation] @ -Not applicable Poses a threat to life or bodily function? @ -No Return precautions reviewed in depth, the patient is instructed to return to the emergency department with any new, worsening, or concerning symptoms. Patient verbalized understanding. This case was discussed in detail with the attending ED physician, Dr. Mota. Presentation, findings, and treatment plan discussed in detail as well. - Lab Data Result diagrams: 06/05/23 10:01 06/05/23 10:01 Lab Results 06/05/23 06/05/23 06/05/23 Range/Units 10:01 10:01 10:01 WBC 12.0 H (3.8-10.6) k/uL RBC 5.12 (3.80-5.40) m/uL Hgb 16.6 H (11.4-16.0) gm/dL Hct 50.4 H (34.0-46.0) % MCV 98.4 (80.0-100.0) fL MCH 32.5 (25.0-35.0) pg MCHC 33.0 (31.0-37.0) g/dL RDW 13.2 (11.5-15.5) % Plt Count 150 (150-450) k/uL MPV 9.6 Neutrophils % 85 % Lymphocytes % 10 % Monocytes % 4 % Eosinophils % 1 % Basophils % 0 % Neutrophils # 10.1 H (1.3-7.7) k/uL Lymphocytes # 1.1 (1.0-4.8) k/uL Monocytes # 0.5 (0-1.0) k/uL Eosinophils # 0.1 (0-0.7) k/uL Basophils # 0.0 (0-0.2) k/uL Sodium 144 (137-145) mmol/L Potassium 4.0 (3.5-5.1) mmol/L Chloride 108 H (98-107) mmol/L Carbon Dioxide 27 (22-30) mmol/L Anion Gap 9 mmol/L BUN 10 (7-17) mg/dL Creatinine 0.89 (0.52-1.04) mg/dL Est GFR (CKD-EPI)AfAm 86 (>60 ml/min/1.73 sqM) Est GFR (CKD-EPI)NonAf 74 (>60 ml/min/1.73 sqM) Glucose 134 H (74-99) mg/dL Lactic Ac Sepsis Rflx Plasma Lactic Acid Heraclio (0.7-2.0) mmol/L Calcium 9.4 (8.4-10.2) mg/dL Total Bilirubin 0.4 (0.2-1.3) mg/dL AST 19 (14-36) U/L ALT 17 (4-34) U/L Alkaline Phosphatase 90 (38-126) U/L Troponin I (0.000-0.034) ng/mL Total Protein 6.2 L (6.3-8.2) g/dL Albumin 3.8 (3.5-5.0) g/dL Amylase 91 (30-110) U/L Lipase 76 (23-300) U/L Urine Color Yellow Urine Appearance Cloudy H (Clear) Urine pH 6.5 (5.0-8.0) Ur Specific [place] 1.017 (1.001-1.035) Urine Protein Negative (Negative) Urine Glucose (UA) Negative (Negative) Urine Ketones Negative (Negative) Urine Blood Large H (Negative) Urine Nitrite Negative (Negative) Urine Bilirubin Negative (Negative) Urine Urobilinogen <2.0 (<2.0) mg/dL Ur Leukocyte Esterase Negative (Negative) Urine RBC >182 H (0-5) /hpf Urine WBC 4 (0-5) /hpf Ur Squamous Epith Cells 1 (0-4) /hpf Amorphous Sediment Occasional H (None) /hpf Hyaline Casts 3 H (0-2) /lpf Urine Mucus Rare H (None) /hpf 06/05/23 06/05/23 06/05/23 Range/Units 10:01 10:01 10:38 WBC (3.8-10.6) k/uL RBC (3.80-5.40) m/uL Hgb (11.4-16.0) gm/dL Hct (34.0-46.0) % MCV (80.0-100.0) fL MCH (25.0-35.0) pg MCHC (31.0-37.0) g/dL RDW (11.5-15.5) % Plt Count (150-450) k/uL MPV Neutrophils % % Lymphocytes % % Monocytes % % Eosinophils % % Basophils % % Neutrophils # (1.3-7.7) k/uL Lymphocytes # (1.0-4.8) k/uL Monocytes # (0-1.0) k/uL Eosinophils # (0-0.7) k/uL Basophils # (0-0.2) k/uL Sodium (137-145) mmol/L Potassium (3.5-5.1) mmol/L Chloride (98-107) mmol/L Carbon Dioxide (22-30) mmol/L Anion Gap mmol/L BUN (7-17) mg/dL Creatinine (0.52-1.04) mg/dL Est GFR (CKD-EPI)AfAm (>60 ml/min/1.73 sqM) Est GFR (CKD-EPI)NonAf (>60 ml/min/1.73 sqM) Glucose (74-99) mg/dL Lactic Ac Sepsis Rflx Y Plasma Lactic Acid Heraclio 2.3 H* (0.7-2.0) mmol/L Calcium (8.4-10.2) mg/dL Total Bilirubin (0.2-1.3) mg/dL AST (14-36) U/L ALT (4-34) U/L Alkaline Phosphatase (38-126) U/L Troponin I <0.012 (0.000-0.034) ng/mL Total Protein (6.3-8.2) g/dL Albumin (3.5-5.0) g/dL Amylase (30-110) U/L Lipase (23-300) U/L Urine Color Urine Appearance (Clear) Urine pH (5.0-8.0) Ur Specific [place] (1.001-1.035) Urine Protein (Negative) Urine Glucose (UA) (Negative) Urine Ketones (Negative) Urine Blood (Negative) Urine Nitrite (Negative) Urine Bilirubin (Negative) Urine Urobilinogen (<2.0) mg/dL Ur Leukocyte Esterase (Negative) Urine RBC (0-5) /hpf Urine WBC (0-5) /hpf Ur Squamous Epith Cells (0-4) /hpf Amorphous Sediment (None) /hpf Hyaline Casts (0-2) /lpf Urine Mucus (None) /hpf - Radiology Data Radiology results: report reviewed, image reviewed Disposition Clinical Impression: Left sided abdominal pain Disposition: HOME SELF-CARE Instructions (If sedation given, give patient instructions): Urinary Tract Infection in Women (ED), Flank Pain (ED) Additional Instructions: Return to the emergency department with any new, worsening, or concerning symptoms. Take the antibiotics as prescribed for 7 days. Take the Toradol with Tylenol as needed for pain relief. If you choose to take the Toradol, do not take any other anti-inflammatories such as ibuprofen, take one or the other. Take the Zofran up to every 8 hours as needed for nausea and vomiting. Follow up with your primary care provider in 1-2 days. Prescriptions: Ciprofloxacin HCl [Cipro] 500 mg PO Q12HR 7 Days #14 tab Ketorolac [Toradol] 10 mg PO Q6HR PRN #15 tab PRN Reason: Pain Ondansetron Odt [Zofran Odt] 4 mg PO Q8HR PRN #20 tab PRN Reason: Nausea And Vomiting Is patient prescribed a controlled substance at d/c from ED?: No Referrals: Anderson Nickerson MD [Primary Care Provider] - 1-2 days
[2023-06-05 10:16] LABS: Basophils % (A) 0 %; Eosinophils # (A) 0.1 k/uL (0-0.7); Eosinophils % (A) 1 %; HCT 50.4 % (34.0-46.0); HGB 16.6 gm/dL (11.4-16.0); Lymphocytes # (A) 1.1 k/uL (1.0-4.8); Lymphocytes % (A) 10 %; MCH 32.5 pg (25.0-35.0); MCV 98.4 fL (80.0-100.0); Mean Platelet Volume 9.6; Monocytes # (A) 0.5 k/uL (0-1.0); Monocytes % (A) 4 %; Neutrophils # (A) 10.1 k/uL (1.3-7.7); Neutrophils % (A) 85 %; Platelet Count 150 k/uL (150-450); RBC 5.12 m/uL (3.80-5.40); RDW 13.2 % (11.5-15.5)
[2023-06-05 10:24] LABS: ALT 17 U/L (4-34); AST 19 U/L (14-36); African American GFR (CKD) 86 (>60 ml/min/1.73 sqM); Albumin 3.8 g/dL (3.5-5.0); Alkaline Phosphatase 90 U/L (38-126); Amylase 91 U/L (30-110); Anion Gap 9 mmol/L; Blood Urea Nitrogen 10 mg/dL (7-17); Calcium 9.4 mg/dL (8.4-10.2); Carbon Dioxide 27 mmol/L (22-30); Chloride 108 mmol/L (98-107); Glucose 134 mg/dL (74-99); Lipase 76 U/L (23-300); Non-African American GFR(CKD) 74 (>60 ml/min/1.73 sqM); Sodium 144 mmol/L (137-145); Total Bilirubin 0.4 mg/dL (0.2-1.3); Total Protein 6.2 g/dL (6.3-8.2)
[2023-06-05 10:37] LABS: Amorphous Sediment,Urine Occasional /hpf; Appearance,Urine Cloudy (Clear); Bilirubin,Urine Negative (Negative); Blood,Urine Large (Negative); Color,Urine Yellow; Glucose,Urine (UA) Negative (Negative); Hyaline Casts,Urine 3 /lpf (0-2); Ketones,Urine Negative (Negative); Leukocyte Esterase,Urine Negative (Negative); Mucus,Urine Rare /hpf; Nitrite,Urine Negative (Negative); PH, Urine 6.5 (5.0-8.0); Protein,Urine Negative (Negative); RBC,Urine >182 /hpf (0-5); Specific Gravity,Urine 1.017 (1.001-1.035); Squamous Epithelial Cell,Urine 1 /hpf (0-4); Urobilinogen,Urine <2.0 mg/dL (<2.0); WBC,Urine 4 /hpf (0-5)
--- NOTE | 2023-06-05 11:47 | CT ---
EXAMINATION TYPE: CT abdomen pelvis w con DATE OF EXAM: 06/05/2023 COMPARISON: CT chest 07/18/2019 HISTORY: 52-year-old female LLQ abdominal pain TECHNIQUE: Contiguous axial scanning of the abdomen and pelvis following administration of 100 ml Iso leon 300 IV contrast. Delayed images through the kidneys and coronal/sagittal reconstructions perform ed. CT DLP: 978 mGycm Automated exposure control for dose reduction was used. FINDINGS: LUNG BASES: No significant abnormality is appreciated. LIVER/GB: A small 8 mm cyst left liver lobe. Clip along the inferior right liver margin. Cholecystec tamika clips. Portal venous system is patent. No biliary ductal dilatation. PANCREAS: No significant abnormality is seen. SPLEEN: No significant abnormality is seen. ADRENALS: Unchanged mild thickening of the bilateral adrenal glands compared to 2019.r KIDNEYS: Asymmetric perinephric edema on the left, some of which tracks down the upper left ureter. T here are no significant hydronephrosis or delay in excretion of contrast from the left kidney. Calcif ications in the pelvis compatible with phleboliths. Possible calcification measuring 5 mm along the c ourse of the distal left ureter. No abnormal parenchymal enhancement of the left kidney. BOWEL: No dilated small bowel. Normal appendix. No significant stool burden. Left-sided colonic diver ticulosis greatest in the proximal to mid sigmoid colon. No pericolonic inflammatory change. LYMPH NODES: No greater than 1cm abdominal or pelvic lymph nodes are appreciated. PELVIS: Bladder partially distended. Uterus anteverted. Right ovary visualized. Left ovary not clearl y seen. Bilateral tubal ligation clips. No abnormal fluid collection in the pelvis or pelvic lymphade nopathy. OSSEOUS STRUCTURES: Moderate degenerative disc disease L5-S1 with some facet arthropathy. OTHER: No significant additional abnormality is seen. IMPRESSION: 1. ASYMMETRIC LEFT-SIDED PERINEPHRIC EDEMA BUT WITH RENAL ENHANCEMENT APPEARING NORMAL ARGUING AGAINS T UNDERLYING PYELONEPHRITIS. CLINICALLY CORRELATE. 2. THERE ARE PHLEBOLITHS IN THE PELVIS. ONE OF THESE 5 MM CALCIFICATIONS MAY BE LOCATED IN THE DISTAL LEFT URETER AND MAY REPRESENT A DISTAL LEFT URETERAL STONE. NO SIGNIFICANT OBSTRUCTIVE UROPATHY SEEN . 3. LEFT-SIDED COLONIC DIVERTICULOSIS WITHOUT ACUTE DIVERTICULITIS.
[2023-06-05] MEDS ORDERED: cefTRIAXone IN SWFI 1,000 MG/10 ML SYRINGE IVP STA (12:28)
[2023-06-05 12:34] VITALS: BP 128/79; PULSE 79
== END 2023-06-05 13:09 | disposition home or self-care (01) ==
LOC: EC 09:34
DX: R10.32 Left lower quadrant pain (principal); J44.9 Chronic obstructive pulmonary disease, unspecified; K21.9 Gastro-esophageal reflux disease without esophagitis; F17.200 Nicotine dependence, unspecified, uncomplicated; Z90.49 Acquired absence of other specified parts of digestive tract; Z86.59 Personal history of other mental and behavioral disorders; Z79.899 Other long term (current) drug therapy
CPT/HCPCS: 96374 ×2; 96375 ×3; 96361 ×2; 99284 ×2; 36415; 80053; 82150; 83605; 83690; 84484; 85025; 81001; 74177; J2405; J0696; J1885; Q9967